=== PATIENT | female | born 1955 | race Caucasian/White ===

== ENCOUNTER 2021-10-15 16:45 | Inpatient (IN) | payer MEDICARE, SELFPAY ==
[2021-10-15] VITALS (30 sets, daily range): BP systolic 84–185; BP diastolic 51–116; PULSE 86–150; RESP 12–32; TEMP 36.3–37.6; O2SAT 78–96; BMI 29.2; BMI 34.3
--- NOTE | 2021-10-15 17:04 | DI.RAD.S_ITS ---
PROCEDURE: XR CHEST 1V INDICATIONS: chest pain TECHNIQUE: One view of the chest was acquired. COMPARISON: None. FINDINGS: Surgical changes and devices: None. Lungs and pleura: No pneumothorax. Bilateral pleural effusions larger on the right. Patchy bibasilar airspace opacities likely representing atelectasis although concurrent airspace disease not excluded. Mild diffuse interstitial prominence. Mediastinum: Mediastinal contours appear normal. Heart size is normal. Bones and chest wall: No suspicious bony lesions. Overlying soft tissues appear unremarkable. IMPRESSION: Small bilateral pleural effusions with bibasilar airspace opacities which may represent atelectasis and/or concurrent airspace disease. Diffuse interstitial prominence also noted. Early pulmonary edema may have a similar appearance. Recommend clinical correlation. Dictated by: James Foley M.D. on 10/15/2021 at 17:35 Approved by: James Foley M.D. on 10/15/2021 at 17:36
--- NOTE | 2021-10-15 17:08 | ED_ITS ---
HPI - Nausea/Vomiting/Diarrhea General Chief complaint: Nausea/Vomiting/Diarrhea Stated complaint: SWOLLEN BOTH LEGS/ABD./DIARRHEA Time Seen by Provider: 10/15/21 17:08 Source: patient Mode of arrival: Ambulatory Limitations: no limitations History of Present Illness HPI Narrative: This is a 66-year-old female who comes with complaint of intermittent but persistent diarrhea for a month, increasing swelling in her bilateral lower extremities did extending into her abdomen, increasing shortness of breath. Patient denies any syncope but has been lightheaded. She denies nausea or vomiting. She denies chest pain or pressure. She has had increasingly worsening exertional dyspnea. She states she believe she has COPD she has been on a steroid inhaler and rescue inhaler in the past patient does smoke she smok ed for approximately 50 years currently she has 10 cigarettes or less a day. She has not seen a primary care physician in 5-6 years. Her only medication is famotidine [id number]. Had a hysterectomy in 2012. Occasional alcohol, no illicit. Related Data Home Medications Medication Instructions Recorded Confirmed No Known Home Medications 10/15/21 10/15/21 Allergies Allergy/AdvReac Type Severity Reaction Status Date / Time Penicillins Allergy Verified 10/15/21 17:03 Review of Systems Review of Systems ROS Unobtainable: All systems reviewed & are unremarkable except as noted in HPI and below Patient History Social History Smoking Status: Current every day smoker Smoking Status: Current every day smoker tobacco type: cigarettes alcohol intake frequency: holidays/special occasions only Substance Use Type: does not use Exam Narrative Exam Narrative: GENERAL: Alert and oriented x three, fully female in moderate distress. HEENT: Head normocephalic, atraumatic, EOMI, pupils reactive, face symmetric, moist mucous membranes NECK: Supple, full range of motion CARDIOVASCULAR: Tachycardic but regular rate and rhythm without murmurs, rubs or gallops. Positive for JVD. Patient has significant pitting edema 3+ bilateral lower extremities extending up into her abdomen. RESPIRATORY: Breath sounds decreased bilaterally, no wheezes appreciated, rales or rhonchi. Tachypnea. Speaks in 4-5 words. ABDOMEN: Soft, nontender. Normoactive bowel sounds all 4 quadrants. No guarding or rebound, rigidity, no mass : No CVA tenderness EXTREMITIES: Normal range of motion. Patient's fingers and toes have decreased cap refill. Neurovascularly intact NEUROLOGICAL: Cranial nerves II through XII grossly intact. Moving all extremities SKIN: Warm, dry, no petechiae, no rashes or lesions. Initial Vital Signs Initial Vital Signs: Vital Signs Temperature 98.0 F 10/15/21 16:52 Pulse Rate 150 H 10/15/21 16:52 Respiratory Rate 18 10/15/21 16:52 Blood Pressure 144/104 H 10/15/21 16:52 Pulse Oximetry 80 L 10/15/21 16:52 Course Orders Ordered: ED Orders 10/15/21 17:04 XR chest 1V Stat EKG-12 Lead Stat 10/15/21 17:10 COVID19 -Nasal swab/Pre-Proc Stat Complete Blood Count AUTO DIFF Stat Comprehensive Metabolic Panel Stat Lactate (Lactic Acid) Stat Lipase Stat Magnesium Stat NT-proBNP (BNP-Adult 18+) Stat Partial Thromboplastin Time Stat Prothrombin Time INR Stat Troponin & CK Cardiac Panel Stat 10/15/21 17:18 Consult to Respiratory Therapy Evaluate & Treat 10/15/21 17:38 Arterial Blood Gas Stat 10/15/21 17:43 Blood Culture Stat 10/15/21 18:01 Partial Thromboplastin Time Stat 10/15/21 18:10 CT angio chest PE protocol Stat 10/15/21 18:15 Partial Thromboplastin Time DAILY 10/16/21 00:15 PTT [Partial Thromboplastin Time] Q6H 10/16/21 05:00 Hemoglobin and Hematocrit DAILY 10/16/21 06:15 PTT [Partial Thromboplastin Time] Q6H 10/16/21 12:15 PTT [Partial Thromboplastin Time] Q6H 10/16/21 18:15 PTT [Partial Thromboplastin Time] Q6H Partial Thromboplastin Time DAILY 10/17/21 18:15 Partial Thromboplastin Time DAILY 10/18/21 18:15 Partial Thromboplastin Time DAILY 10/19/21 18:15 Partial Thromboplastin Time DAILY 10/20/21 18:15 Partial Thromboplastin Time DAILY 10/21/21 18:15 Partial Thromboplastin Time DAILY Heparin Sodium/Dextrose (Heparin Drip) 25,000 unit in 500 mls @ 20 mls/hr IV CONT TRUONG; Protocol Last Admin: 10/15/21 18:42 Dose: 1,000 units/hr, 20 mls/hr Documented by: PHILIP Esmolol HCl (Brevibloc) 2.5 gm in 250 mls @ 22.453 mls/hr IV TITRATE TRUONG; Protocol Last Titration: 10/15/21 18:56 Dose: 24.5 mcg/kg/min, 11 mls/hr Documented by: Admin: 10/15/21 18:43 Dose: 50 mcg/kg/min, 22.453 mls/hr Documented by: PHILIP Discontinued Medications Aspirin (Aspirin 81 Mg Chew Tab) 324 mg PO NOW ONE Stop: 10/15/21 17:55 Last Admin: 10/15/21 18:05 Dose: 324 mg Documented by: PHILIP Diltiazem HCl (Diltiazem 5 Mg/Ml Sdv) 10 mg IV NOW ONE Stop: 10/15/21 17:21 Last Admin: 10/15/21 17:25 Dose: 10 mg Documented by: PHILIP Furosemide (Furosemide 40 Mg/4 Ml Vial) 40 mg IV NOW ONE Stop: 10/15/21 17:55 Last Admin: 10/15/21 18:06 Dose: 40 mg Documented by: PHILIP Heparin Sodium (Porcine) (Heparin 5,000 Unit/Ml Vial) 4,000 unit IV NOW ONE Stop: 10/15/21 18:02 Last Admin: 10/15/21 18:42 Dose: 4,000 unit Documented by: PHILIP Diltiazem HCl 125 mg/ Dextrose 125 mls @ 5 mls/hr IV TITRATE TRUONG; Protocol Last Admin: 10/15/21 19:01 Dose: Not Given Documented by: PHILIP Consultations Consultation #1: Yasmine, cardiology. Recommends heparin at this time he recommends esmolol for rate control. Aspirin, serial troponins, echo and diuresis. Does not need t ransfer acutely. Consultation #2: JORGE A Izaguirre, accepts for admission. Plan for ICU. Vital Signs Vital signs: Vital Signs - 8 hr 10/15/21 16:52 10/15/21 17:04 10/15/21 17:07 Temperature 98.0 F Pulse Rate 150 H 145 H 146 H Respiratory Rate 18 28 H Blood Pressure 144/104 H 185/114 H Pulse Oximetry 80 L 87 L 81 L 10/15/21 17:12 02/27/22 17:14 10/15/21 17:25 Temperature Pulse Rate 146 H 146 H Respiratory Rate 32 H Blood Pressure 163/116 H 163/116 H Pulse Oximetry 90 L 96 10/15/21 17:28 10/15/21 17:30 10/15/21 17:31 Temperature Pulse Rate 133 H 134 H Respiratory Rate 20 23 Blood Pressure 123/75 Pulse Oximetry 96 92 90 L 10/15/21 17:36 10/15/21 17:37 10/15/21 18:00 Temperature Pulse Rate 132 H 132 H 134 H Respiratory Rate 24 21 22 Blood Pressure 130/73 130/73 126/80 Pulse Oximetry 93 93 95 10/15/21 18:41 10/15/21 18:43 10/15/21 18:51 Temperature Pulse Rate 144 H 139 H 95 H Respiratory Rate 22 23 Blood Pressure 126/93 H 105/74 Pulse Oximetry 91 93 10/15/21 18:57 Temperature Pulse Rate 86 Respiratory Rate 22 Blood Pressure 101/72 Pulse Oximetry 92 MDM - Nausea/Vomiting/Diarrhea Lab Data Result diagrams: 10/15/21 17:10 10/15/21 17:10 Labs: Lab Results 10/15/21 10/15/21 10/15/21 Range/Units 17:10 17:10 17:10 WBC 7.2 (4.5-11.0) X10^3/uL RBC 6.93 H (4.0-5.2) X10^6/uL Hgb 19.0 H (12.0-16.0) g/dL Hct 59.7 H (36-46) % MCV 86.2 (80-100) fL MCH 27.5 (26-34) PG MCHC 31.9 (30-36) % RDW 17.5 H (11.6-14.8) % Plt Count 148 L (150-400) X10^3/uL Neut % (Auto) 78.9 H (50-75) % Lymph % (Auto) 7.5 L (25-40) % [place] % (Auto) 12.6 (3-14) % Eos % (Auto) 0.7 L (2-4) % Baso % (Auto) 0.3 (0-2) % Neut # (Auto) 5700 (7188-0161) /uL Lymph # (Auto) 500 L (4734-9766) /uL [place] # (Auto) 900 (0-900) /uL Eos # (Auto) 0 (0-450) /uL Baso # (Auto) 0 (0-100) /uL PT (10.1-12.7) SECONDS INR (0.9-1.3) APTT (26.4-36.2) SECONDS ABG pH (7.35-7.45) ABG pCO2 (35-45) mmHg ABG pO2 (80-100) mmHg ABG HCO3 (22-26) mmol/L ABG Total CO2 (21-31) mmol/L ABG O2 Saturation (95-100) % ABG Base Excess (-2-2) mmol/L FiO2 Sodium 128 L (137-145) mmol/L Potassium 4.9 (3.4-5.1) mmol/L Chloride 92 L (98-107) mmol/L Carbon Dioxide 31 (22-32) mmol/L BUN 23 H (7-17) mg/dL Creatinine 0.81 (0.52-1.04) mg/dL Estimated GFR > 60.0 (>60) mL/min BUN/Creatinine Ratio 28.4 H (6-22) Glucose 129 H (80-110) mg/dL Lactate (0.7-2.1) mmol/L Calcium 9.1 (8.4-10.2) mg/dL Magnesium 1.8 (1.6-2.3) mg/dL Total Bilirubin 2.8 H (0.2-1.3) mg/dL AST 94 H (14-36) IU/L ALT 70 H (<35) IU/L Alkaline Phosphatase 95 (38-126) U/L Total Creatine Kinase 114 (30-135) U/L CK-MB (CK-2) 8.24 H (<2.37) ng/mL CK-MB (CK-2) Rel Index 7.2 H* (1.5-5.0) % Troponin I 0.210 H* (0.01-0.034) ng/mL NT-Pro-B Natriuret Pep (<125) pg/mL Total Protein 6.5 (6.3-8.2) g/dL Albumin 3.6 (3.5-5.0) g/dL Globulin 2.9 (1.7-4.1) g/dL Albumin/Globulin Ratio 1.2 (1.0-2.8) Lipase 140 (23-300) U/L SARS-CoV-2 (PCR) Negative (Negative) 10/15/21 10/15/21 10/15/21 Range/Units 17:10 17:10 17:10 WBC (4.5-11.0) X10^3/uL RBC (4.0-5.2) X10^6/uL Hgb (12.0-16.0) g/dL Hct (36-46) % MCV (80-100) fL MCH (26-34) PG MCHC (30-36) % RDW (11.6-14.8) % Plt Count (150-400) X10^3/uL Neut % (Auto) (50-75) % Lymph % (Auto) (25-40) % [place] % (Auto) (3-14) % Eos % (Auto) (2-4) % Baso % (Auto) (0-2) % Neut # (Auto) (7402-0526) /uL Lymph # (Auto) (3253-6866) /uL [place] # (Auto) (0-900) /uL Eos # (Auto) (0-450) /uL Baso # (Auto) (0-100) /uL PT 15.5 H (10.1-12.7) SECONDS INR 1.4 H (0.9-1.3) APTT 30 (26.4-36.2) SECONDS ABG pH (7.35-7.45) ABG pCO2 (35-45) mmHg ABG pO2 (80-100) mmHg ABG HCO3 (22-26) mmol/L ABG Total CO2 (21-31) mmol/L ABG O2 Saturation (95-100) % ABG Base Excess (-2-2) mmol/L FiO2 Sodium (137-145) mmol/L Potassium (3.4-5.1) mmol/L Chloride (98-107) mmol/L Carbon Dioxide (22-32) mmol/L BUN (7-17) mg/dL Creatinine (0.52-1.04) mg/dL Estimated GFR (>60) mL/min BUN/Creatinine Ratio (6-22) Glucose (80-110) mg/dL Lactate 3.4 H (0.7-2.1) mmol/L Calcium (8.4-10.2) mg/dL Magnesium (1.6-2.3) mg/dL Total Bilirubin (0.2-1.3) mg/dL AST (14-36) IU/L ALT (<35) IU/L Alkaline Phosphatase (38-126) U/L Total Creatine Kinase (30-135) U/L CK-MB (CK-2) (<2.37) ng/mL CK-MB (CK-2) Rel Index (1.5-5.0) % Troponin I (0.01-0.034) ng/mL NT-Pro-B Natriuret Pep 8210 H (<125) pg/mL Total Protein (6.3-8.2) g/dL Albumin (3.5-5.0) g/dL Globulin (1.7-4.1) g/dL Albumin/Globulin Ratio (1.0-2.8) Lipase (23-300) U/L SARS-CoV-2 (PCR) (Negative) 10/15/21 Range/Units 17:38 WBC (4.5-11.0) X10^3/uL RBC (4.0-5.2) X10^6/uL Hgb (12.0-16.0) g/dL Hct (36-46) % MCV (80-100) fL MCH (26-34) PG MCHC (30-36) % RDW (11.6-14.8) % Plt Count (150-400) X10^3/uL Neut % (Auto) (50-75) % Lymph % (Auto) (25-40) % [place] % (Auto) (3-14) % Eos % (Auto) (2-4) % Baso % (Auto) (0-2) % Neut # (Auto) (1550-1859) /uL Lymph # (Auto) (8332-1932) /uL [place] # (Auto) (0-900) /uL Eos # (Auto) (0-450) /uL Baso # (Auto) (0-100) /uL PT (10.1-12.7) SECONDS INR (0.9-1.3) APTT (26.4-36.2) SECONDS ABG pH 7.36 (7.35-7.45) ABG pCO2 61.4 H* (35-45) mmHg ABG pO2 66 L (80-100) mmHg ABG HCO3 35 H (22-26) mmol/L ABG Total CO2 36 H (21-31) mmol/L ABG O2 Saturation 91 L (95-100) % ABG Base Excess 9.0 H (-2-2) mmol/L FiO2 21 Sodium (137-145) mmol/L Potassium (3.4-5.1) mmol/L Chloride (98-107) mmol/L Carbon Dioxide (22-32) mmol/L BUN (7-17) mg/dL Creatinine (0.52-1.04) mg/dL Estimated GFR (>60) mL/min BUN/Creatinine Ratio (6-22) Glucose (80-110) mg/dL Lactate (0.7-2.1) mmol/L Calcium (8.4-10.2) mg/dL Magnesium (1.6-2.3) mg/dL Total Bilirubin (0.2-1.3) mg/dL AST (14-36) IU/L ALT (<35) IU/L Alkaline Phosphatase (38-126) U/L Total Creatine Kinase (30-135) U/L CK-MB (CK-2) (<2.37) ng/mL CK-MB (CK-2) Rel Index (1.5-5.0) % Troponin I (0.01-0.034) ng/mL NT-Pro-B Natriuret Pep (<125) pg/mL Total Protein (6.3-8.2) g/dL Albumin (3.5-5.0) g/dL Globulin (1.7-4.1) g/dL Albumin/Globulin Ratio (1.0-2.8) Lipase (23-300) U/L SARS-CoV-2 (PCR) (Negative) Imaging Data Chest x-ray: Radiologist's Impression: [address] [id number] ReportSigned Patient: Elayne AbbottMR#: [id number]: 3Acct:[id number]/Sex: 66 / FDate of Service: 10/15/21Loc: EDAccession Number: [id number]? ? Procedure: XR chest 1V Ordering Provider: Edelmira Carbone D.O. PROCEDURE:? XR CHEST 1V ? INDICATIONS:? chest pain ? TECHNIQUE:? One view of the chest was acquired.? ? COMPARISON:? None. ? FINDINGS:? ? Surgical changes and devices:? None.? ? Lungs and pleura:? No pneumothorax.? Bilateral pleural effusions larger on the right.? Patchy bibasilar airspace opacities likely representing atelectasis although concurrent airspace disease not excluded.? Mild diffuse interstitial prominence. ? Mediastinum:? Mediastinal contours appear normal.? Heart size is normal.? ? Bones and chest wall:? No suspicious bony lesions.? Overlying soft tissues appear unremarkable.? ? IMPRESSION:? Small bilateral pleural effusions with bibasilar airspace opacities which may represent atelectasis and/or concurrent airspace disease.? Diffuse interstitial prominence also noted.? Early pulmonary edema may have a similar appearance.? Recommend clinical correlation. ? ? Dictated by: James Foley M.D. on 10/15/2021 at 17:35? ?? Approved by: James Foley M.D. on 10/15/2021 at 17:36?? CT scan - chest: Radiologist's Impression: Launch?[place] [address] CT Scan Report Signed Patient: Elayne Abbott MR#: [id number] : 1955 Acct:[id number] Age/Sex: 66 / F Date of Service: 10/15/21 Loc: ED Accession Number: [id number] ?? Procedure: CT angio chest PE protocol Ordering Provider: Edelmira Carbone D.O. PROCEDURE:? CT ANGIO CHEST PE PROTOCOL ? INDICATIONS:? afib rvr, CXR changes. ? TECHNIQUE:? After the administration of intravenous contrast, 2 mm thick sections acquired from the pulmonary apices to the posterior costophrenic angles.? 3-dimensional maximum in tensity projection (MIP) coronal and sagittal reformats were then acquired through the thorax.? For radiation dose reduction, the following was used:? automated exposure control, adjustment of mA and/or kV according to patient size.? ? COMPARISON:? None. ? FINDINGS:? Image quality:? Excellent.? ? Pulmonary arteries:? Enlargement of the pulmonary trunk, compatible with hypertension.? No intraluminal filling defects to suggest central pulmonary embolism.? ? Lungs and pleura:? Small bilateral pleural effusions with adjacent atelectasis.? Two noncalcified pulmonary nodules are seen in the right upper lobe, measuring up to 2.8 mm (i.e. 7-98).? ? Central and peripheral airways are patent.? ? Mediastinum:? Cardiomegaly without pericardial effusion.? Coronary artery calcification.? ? No mediastinal or hilar adenopathy.? ? Thoracic aorta is normal in caliber and enhancement.? ? Wall thickening of the esophagus with moderate to large hiatal hernia.? ? Bones and chest wall:? No suspicious bony lesions.? Multifocal degenerative change.? Ribs and thoracic spine appear intact throughout.? ? Thyroid gland demonstrates homogeneous attenuation.? ? No axillary or supraclavicular adenopathy.? Anasarca.? Left diaphragmatic defect, measuring 6 cm, which contains a portion of the colon. ? Abdomen:? Small volume ascites. ? IMPRESSION:? 1. Small bilateral pleural effusions with adjacent atelectasis. 2. Cardiomegaly. 3. Enlargement of the pulmonary vasculature, compatible with hypertension. ? ? Dictated by: Joey Arreguin M.D. on 10/15/2021 at 18:43 ? ? Approved by: Joey Arreguin M.D. on 10/15/2021 at 18:50? ECG Data Attestation: I personally reviewed and interpreted this ECG as follows: Prior ECG tracings: not available for review Interpretation: Supraventricular tachycardia rate of 147 QRS 84 and QTC 435. Do not appreciate ST elevation. No priors available for comparison. MDM Narrative Medical decision making narrative: This is a 66-year-old female comes in tachycardic with AFib RVR, appears to be in CHF clinically and labs support this with no acute ST elevation but has either NSTEMI or demand ischemia. Patient's heart rate did improve with a bolus of diltiazem after consultation with Cardiology they recommend beta-blockers preferentially, metoprolol and labetalol are not available there is a national back order so as well all was selected. Patient has been well rate controlled with very minimal dose. Aspirin, heparin and Lasix were initiated. Patient had changes on her chest x-ray concerning with her COPD/chronic tobacco use in CT angio was obtained which shows possible pulmonary hypertension, bilateral pleural effusions and patchy bibasilar airspace opacities but no PE. Patient's oxygenation improved significantly with 3 L nasal cannula and ABG shows what appears to be chronic CO to retention consistent with chronic tobacco use. Patient feels much better after our interventions. Discussed with hospitalist who kindly accepts and patient admitted to the ICU. Critical Care Time Critical Care Time Critical Care Time: Yes Total Critical Care Time: 45 Attestation: The high probability of a clinically significant, sudden or life threatening deterioration of the [cardiac, pulm] system(s) required my full and direct attention, intervention and personal management. The aggregate critical care time was [] minutes. This time is in addition to time spent performing reported procedures but includes the following: [x] Data Review and interpretation [x] Patient assessment and monitoring of vital signs [x] Documentation [x] Medication orders and management Discharge Plan Departure Patient Disposition: Admitted As Inpatient Clinical Impression: Acute exacerbation of CHF (congestive heart failure), Atrial fibrillation with rapid ventricular response, Non-ST elevation (NSTEMI) myocardial infarction
[2021-10-15] MEDS: dilTIAZem 5 MG/ML SDV 10 MG IV (17:25)
[2021-10-15 17:29] LABS: Add Manual Diff / Slide Review NO; Basophils Absolute Auto 0 /uL (0-100); Basophils Percent Auto 0.3 % (0-2); Eosinophils Absolute Auto 0 /uL (0-450); Eosinophils Percent Auto 0.7 % (2-4); Hematocrit 59.7 % (36-46); Lymphocytes Absolute Auto 500 /uL (1100-4500); Lymphocytes Percent Auto 7.5 % (25-40); Mean Corpuscular HGB Conc 31.9 % (30-36); Mean Corpuscular Hemoglobin 27.5 PG (26-34); Mean Corpuscular Volume 86.2 fL (80-100); Monocytes Absolute Auto 900 /uL (0-900); Monocytes Percent Auto 12.6 % (3-14); Neutrophils Absolute Auto 5700 /uL (1500-7000); Neutrophils Percent Auto 78.9 % (50-75); Platelet Count 148 X10^3/uL (150-400); Red Blood Cell Count 6.93 X10^6/uL (4.0-5.2); Red Cell Distribution Width 17.5 % (11.6-14.8); White Blood Cell Count 7.2 X10^3/uL (4.5-11.0)
--- NOTE | 2021-10-15 17:30 | PC.NURSE ---
RT at bedside. Patient placed back on room air for ABG.
[2021-10-15 17:32] LABS: COVID19 -Nasal RAPID Negative (Negative)
[2021-10-15 17:34] LABS: INR 1.4 (0.9-1.3); Prothrombin Time 15.5 SECONDS (10.1-12.7)
[2021-10-15 17:37] LABS: PTT Partial Thromboplastin Tim 30 SECONDS (26.4-36.2)
[2021-10-15 17:38] LABS: Alanine Aminotransferase 70 IU/L (<35); Albumin 3.6 g/dL (3.5-5.0); Albumin Globulin Ratio 1.2 (1.0-2.8); Alkaline Phosphatase 95 U/L (38-126); Aspartate Aminotransferase 94 IU/L (14-36); BUN Creatinine Ratio 28.4 (6-22); Bilirubin Total 2.8 mg/dL (0.2-1.3); Blood Urea Nitrogen 23 mg/dL (7-17); Calcium 9.1 mg/dL (8.4-10.2); Carbon Dioxide 31 mmol/L (22-32); Chloride 92 mmol/L (98-107); Creatine Kinase 114 U/L (30-135); Estimated Glomerular Filt Rate > 60.0 mL/min (>60); Globulin 2.9 g/dL (1.7-4.1); Glucose 129 mg/dL (80-110); Lipase 140 U/L (23-300); Magnesium 1.8 mg/dL (1.6-2.3); Potassium 4.9 mmol/L (3.4-5.1); Sodium 128 mmol/L (137-145); Total Protein 6.5 g/dL (6.3-8.2)
[2021-10-15 17:39] LABS: Lactate (Lactic Acid) 3.4 mmol/L (0.7-2.1)
[2021-10-15 17:47] LABS: pH ABG 7.36 (7.35-7.45)
[2021-10-15 17:47] LABS: NT-proBNP (BNP-Adult 18+) 8210 pg/mL (<125)
[2021-10-15 17:48] LABS: Fractionated Inspired Oxygen 21; HCO3 ABG 35 mmol/L (22-26); Oxygen Saturation ABG 91 % (95-100); PO2 ABG 66 mmHg (80-100); TCO2 ABG 36 mmol/L (21-31)
[2021-10-15 17:53] LABS: Creatine Kinase MB 8.24 ng/mL (<2.37); HEMOLYSIS 38 (0-50)
[2021-10-15 17:58] LABS: CKMB % Relative Index 7.2 % (1.5-5.0)
[2021-10-15] MEDS: ASPIRIN 81 MG CHEW TAB 324 MG PO (18:05)
[2021-10-15] MEDS: FUROSEMIDE 40 MG/4 ML VIAL IV (18:06)
--- NOTE | 2021-10-15 18:10 | DI.CT.S_ITS ---
PROCEDURE: CT ANGIO CHEST PE PROTOCOL INDICATIONS: afib rvr, CXR changes. TECHNIQUE: After the administration of intravenous contrast, 2 mm thick sections acquired from the pulmonary apices to the posterior costophrenic angles. 3-dimensional maximum intensity projection (MIP) coronal and sagittal reformats were then acquired through the thorax. For radiation dose reduction, the following was used: automated exposure control, adjustment of mA and/or kV according to patient size. COMPARISON: None. FINDINGS: Image quality: Excellent. Pulmonary arteries: Enlargement of the pulmonary trunk, compatible with hypertension. No intraluminal filling defects to suggest central pulmonary embolism. Lungs and pleura: Small bilateral pleural effusions with adjacent atelectasis. Two noncalcified pulmonary nodules are seen in the right upper lobe, measuring up to 2.8 mm (i.e. 7-98). Central and peripheral airways are patent. Mediastinum: Cardiomegaly without pericardial effusion. Coronary artery calcification. No mediastinal or hilar adenopathy. Thoracic aorta is normal in caliber and enhancement. Wall thickening of the esophagus with moderate to large hiatal hernia. Bones and chest wall: No suspicious bony lesions. Multifocal degenerative change. Ribs and thoracic spine appear intact throughout. Thyroid gland demonstrates homogeneous attenuation. No axillary or supraclavicular adenopathy. Anasarca. Left diaphragmatic defect, measuring 6 cm, which contains a portion of the colon. Abdomen: Small volume ascites. IMPRESSION: 1. Small bilateral pleural effusions with adjacent atelectasis. 2. Cardiomegaly. 3. Enlargement of the pulmonary vasculature, compatible with hypertension. Dictated by: Joey Arreguin M.D. on 10/15/2021 at 18:43 Approved by: Joey Arreguin M.D. on 10/15/2021 at 18:50
[2021-10-15] MEDS: HEPARIN 5,000 UNIT/ML VIAL 4000 UNIT IV (18:42)
[2021-10-15] MEDS: HEPARIN DRIP 25,000 UNIT/500 ML IV.SOLN 20 UNIT IV (18:42)
[2021-10-15] MEDS: ESMOLOL 2.5 GM/250 ML IV.SOLN IV (18:43)
[2021-10-15 19:25] LABS: Reflexed Lactate in 2 Hours Y
[2021-10-15 20:41] LABS: Lactate 2HR (Lactic Acid Rflx) 1.6 mmol/L (0.7-2.1)
--- NOTE | 2021-10-15 21:33 | P.HP_ITS ---
History of Present Illness History of Present Illness Date Patient Seen: 10/15/21 Time Patient Seen: 20:30 Chief complaint: SWOLLEN IN BOTH LEGS/ABD./DIARRHEA Narrative: Elayne Abbott is a 66-year-old female who comes with a 2-week history of intermittent but persistent diarrhea, increasing swelling in her bilateral lower extremities did extending into her abdomen, increasing shortness of breath over the past week.? Patient denies any syncope but has been lightheaded.? She denies nausea or vomiting.? She denies chest pain or pressure.? She has had increas ingly worsening exertional dyspnea.? She states she believes she has COPD as she continues to smoke, having a 50 year pack history, now smoking 10 cigarettes/day. She has been on a steroid inhaler and rescue inhaler in the past. She has not seen a primary care physician in 5-6 years.? Her only medic ation is famotidine [id number].? Had a hysterectomy in 2012. Chest x-ray ordered in the emergency department indicated small bilateral effusions concerning for atelectasis and/or concurrent airspace disease. CTA indicated in addition to same findings as chest x-ray, enlargement of the pulmon arielle vasculature compatible with hypertension. Patient's troponin was elevated initially at 0.210 and was started on a heparin drip as well as esmolol for rate control. The patient was bolused with an initial dose of diltiazem 10 mg. She came up to the floor with the intention of being started on an esmolol drip at 25 mics, but when she converted they did not start the drip. She was at that point rate controlled and the tele mens locker room attendant recommended that she be initiated on a low dose of esmolol approximately 6 mics per minute. Currently she is afebrile, blood pressure 92/59, heart rate 117, respiratory rate 22, oxygen saturation of 95% on 3 liters/minute, she weighs 88 kg with a BMI of 34.3. She is heme concentrated with a hemoglobin of 19 and hematocrit of 59.7 platelet count 148, her ABG pCO2 was 61.4 which is likely where she lives at, sodium 128, chloride 92, BUN 23, glucose 129, hemoglobin A1c is 7.1, total bilirubin is 2.8, AST 394, ALT 70. As stated her initial troponin was 0.210 and it is now 0.361 hours later, proBNP is 8210, TSH and free T4 within normal limits, COVID 19 PCR is negative. Patient History Surgical History (Updated 10/16/21 @ 00:49 by JEAN Morales) Hx of hysterectomy Family & Social History Family History (Updated 10/16/21 @ 00:51 by JEAN Morales) Mother COPD (chronic obstructive pulmonary disease) Tobacco dependence due to cigarettes Father COPD (chronic obstructive pulmonary disease) Tobacco dependence due to cigarettes Grandfather Myocardial infarction Grandfather Heart disease Social History: household members spouse Prior Living Arrangements House Safety & Behavioral: Feels Safe in Current Yes Environment Been Physically Hurt or No Threatened By a Person Suicidal Ideation Description None Suicide Plan Description No Plan Tobacco & Substance use: Tobacco type cigarettes Smoking Status Current every day smoker alcohol intake current alcohol intake frequency holiday/special occasion Substance Use Type does not use Meds Home Medications and Allergies Home Medications Medication Instructions Recorded Confirmed Type famotidine 20 mg tablet (Pepcid) 20 mg PO DAILY PRN 10/15/21 10/15/21 History Allergies Allergy/AdvReac Type Severity Reaction Status Date / Time Penicillins Allergy Verified 10/15/21 17:03 Review of Systems Review of Systems ROS: Yes All systems reviewed with the patient and are negative except as otherwise documented Exam Vital Signs (past 8 hours): - 10/15/21 16:52 10/15/21 17:04 10/15/21 17:07 Temperature 98.0 F Pulse Rate 150 H 145 H 146 H Respiratory Rate 18 28 H Blood Pressure 144/104 H 185/114 H Pulse Oximetry 80 L 87 L 81 L 10/15/21 17:12 10/15/21 17:14 10/15/21 17:25 Temperature Pulse Rate 146 H 146 H Respiratory Rate 32 H Blood Pressure 163/116 H 163/116 H Pulse Oximetry 90 L 96 10/15/21 17:28 10/15/21 17:30 10/15/21 17:31 Temperature Pulse Rate 133 H 134 H Respiratory Rate 20 23 Blood Pressure 123/75 Pulse Oximetry 96 92 90 L 10/15/21 17:36 10/15/21 17:37 10/15/21 18:00 Temperature Pulse Rate 132 H 132 H 134 H Respiratory Rate 24 21 22 Blood Pressure 130/73 130/73 126/80 Pulse Oximetry 93 93 95 10/15/21 18:41 10/15/21 18:43 10/15/21 18:51 Temperature Pulse Rate 144 H 139 H 95 H Respiratory Rate 22 16 Blood Pressure 126/93 H 105/74 Pulse Oximetry 91 93 10/15/21 18:56 10/15/21 18:57 10/15/21 19:00 Temperature Pulse Rate 96 H 86 95 H Respiratory Rate 22 17 Blood Pressure 101/72 101/72 112/88 Pulse Oximetry 92 91 10/15/21 19:21 10/15/21 19:30 10/15/21 19:45 Temperature Pulse Rate 94 H 95 H 96 H Respiratory Rate 22 20 20 Blood Pressure 113/83 109/70 104/65 Pulse Oximetry 94 10/15/21 20:00 10/15/21 20:01 10/15/21 20:15 Temperature Pulse Rate 96 H 97 H 96 H Respiratory Rate 20 19 24 Blood Pressure 85/58 L 97/66 102/67 Pulse Oximetry 94 94 91 Oxygen Delivery Method Nasal Cannula Oxygen Flow Rate 3 Objective Labs Result Diagrams: 10/15/21 17:10 10/15/21 17:10 Labs: Laboratory Results - last 24 hr 10/15/21 10/15/21 10/15/21 17:10 17:10 17:10 WBC 7.2 RBC 6.93 H Hgb 19.0 H Hct 59.7 H MCV 86.2 MCH 27.5 MCHC 31.9 RDW 17.5 H Plt Count 148 L Neut % (Auto) 78.9 H Lymph % (Auto) 7.5 L [place] % (Auto) 12.6 Eos % (Auto) 0.7 L Baso % (Auto) 0.3 Neut # (Auto) 5700 Lymph # (Auto) 500 L [place] # (Auto) 900 Eos # (Auto) 0 Baso # (Auto) 0 PT INR APTT ABG pH ABG pCO2 ABG pO2 ABG HCO3 ABG Total CO2 ABG O2 Saturation ABG Base Excess FiO2 Sodium 128 L Potassium 4.9 Chloride 92 L Carbon Dioxide 31 BUN 23 H Creatinine 0.81 Estimated GFR > 60.0 BUN/Creatinine Ratio 28.4 H Glucose 129 H Lactate Calcium 9.1 Magnesium 1.8 Total Bilirubin 2.8 H AST 94 H ALT 70 H Alkaline Phosphatase 95 Total Creatine Kinase 114 CK-MB (CK-2) 8.24 H CK-MB (CK-2) Rel Index 7.2 H* Troponin I 0.210 H* NT-Pro-B Natriuret Pep Total Protein 6.5 Albumin 3.6 Globulin 2.9 Albumin/Globulin Ratio 1.2 Lipase 140 SARS-CoV-2 (PCR) Negative 10/15/21 10/15/21 10/15/21 17:10 17:10 17:10 WBC RBC Hgb Hct MCV MCH MCHC RDW Plt Count Neut % (Auto) Lymph % (Auto) [place] % (Auto) Eos % (Auto) Baso % (Auto) Neut # (Auto) Lymph # (Auto) [place] # (Auto) Eos # (Auto) Baso # (Auto) PT 15.5 H INR 1.4 H APTT 30 ABG pH ABG pCO2 ABG pO2 ABG HCO3 ABG Total CO2 ABG O2 Saturation ABG Base Excess FiO2 Sodium Potassium Chloride Carbon Dioxide BUN Creatinine Estimated GFR BUN/Creatinine Ratio Glucose Lactate 3.4 H Calcium Magnesium Total Bilirubin AST ALT Alkaline Phosphatase Total Creatine Kinase CK-MB (CK-2) CK-MB (CK-2) Rel Index Troponin I NT-Pro-B Natriuret Pep 8210 H Total Protein Albumin Globulin Albumin/Globulin Ratio Lipase SARS-CoV-2 (PCR) 10/15/21 10/15/21 17:38 19:56 WBC RBC Hgb Hct MCV MCH MCHC RDW Plt Count Neut % (Auto) Lymph % (Auto) [place] % (Auto) Eos % (Auto) Baso % (Auto) Neut # (Auto) Lymph # (Auto) [place] # (Auto) Eos # (Auto) Baso # (Auto) PT INR APTT ABG pH 7.36 ABG pCO2 61.4 H* ABG pO2 66 L ABG HCO3 35 H ABG Total CO2 36 H ABG O2 Saturation 91 L ABG Base Excess 9.0 H FiO2 21 Sodium Potassium Chloride Carbon Dioxide BUN Creatinine Estimated GFR BUN/Creatinine Ratio Glucose Lactate 1.6 Calcium Magnesium Total Bilirubin AST ALT Alkaline Phosphatase Total Creatine Kinase CK-MB (CK-2) CK-MB (CK-2) Rel Index Troponin I NT-Pro-B Natriuret Pep Total Protein Albumin Globulin Albumin/Globulin Ratio Lipase SARS-CoV-2 (PCR) Assessment & Plan Assessment & Plan narrative: Elayne Abbott is a 66 y.o. female with newly diagnosed DM type 2, heart falure, and atrial-fibrillation with RVR is admitted to the ICU for further evaluation of atrial fibrillation. 1. Atrial fibrillation w/RVR, acute and present on admission * She is initiated on a low dose esmolol drip * If blood pressure unable to tolerate esmolol drip, change to amiodarone bolus and drip recommended by tele-mens locker room attendant * TSH/Free T4 w/in normal limits. 2. New diagnosis of probable congestive heart failure exhibiting as volume overload, acute, present on admission * Echocardiogram in the morning to determine severity and type of CHF * IV Lasix q.12 hours w/1L/day goal * Strict I&Os q 8 hours * She was ordered for magnesium by the mens locker room attendant 3. NSTEMI vs demand ischemia, * She was initiated on heparin drip in the emergency department per Cardiology recommendation * Start low-dose aspirin in the morning * Troponins continue to trend up as of 10:28 p.m. Next troponin due at 0500. 4. New diagnosis of diabetes type 2 * She will need diabetic education * Carb controlled diet * Low dose insulin correctional scale 5. History of COPD. * Chronic Resp Acidosis on ABG noted. Elevated Hgb and CO2 * Continue NC if needed, O2 sat goal is 87-93% * PRN Nebs, albuterol and duoneb * Smoking cessation education. 14 mcg Nicotine patch to be offered. 6. Elevated LFTs, unknown if acute * have ordered an acute hepatitis panel * Possible abdominal ascites, may need abdominal ultrasound 7. Diarrhea, present for 2 weeks * She has been ordered for stool cultures and Clostridium difficile VTE Prophylaxis: Wells risk score 1.5 Patient is currently being anticoagulated on a heparin drip Patient is admitted to the inpatient intensive care unit due to the severity of disease, risks of further disease progression and this stay is expected to exceed 2 midnights. FEN: IV fluids: receiving drips, diet: carb controlled , labs: CBC, C/BMP, liver enzymes, Mag, PT/INR Consultants: Intercept-ICU care and involvement in the patient?s care is appreciated. Dispo: Unknown at this time Code status: Full code as discussed with the patient who identifies her , Vel her surrogate and POA. [X] I have utilized all available immediate resources to obtain, update, or review of the patient's current medications Time Spent With Patient Critical Care time: I spent a total of [] minutes of critical care time on this patient's care today; this time is exclusive of procedural time. Scores CHADS-VASc Congestive heart failure: yes Hypertension: no Age 75 years or older: no Diabetes mellitus: yes Stroke, TIA, or TE: no Vascular disease: no Age 65 to 74 years: yes Sex category (female): Female CHADS-VASc Score: 4 Wells' Criteria for PE Clinical signs and symptoms of DVT: No PE is #1 Dx or equally likely: No Heart rate > 100: Yes Immobilization at least 3 days or surg in previous 4 weeks: No History of PE or DVT: No Hemoptysis: No Malignancy w/Treatment within 6 months or palliative: No Wells' PE Score total: 1.5 Quality VTE Deep Vein Thrombosis/Pulmonary Embolism Present on Admission: No MIPS - Admit I confirm the patient?s Advance Care Plan is present, Code status is documented, Surrogate decision maker is in patient?s record [If Yes, STOP here]: Yes MIPS - DC The patient has current or prior documentation of left ventricular ejection fra ction (LVEF) less than 40%, or moderate or severely depressed left ventricular systolic function.: No
--- NOTE | 2021-10-15 21:38 | DI.ECHO.S_ITS ---
[facility]---------+ [facility] +---------+ : : [address] [place] : : : : [id number] : : : : Phone: [phone] Echocardiogram Report + + :Name: MATTEO YUSUF Study Date: 10/16/2021 Height: 63 in : :[facility] ReadingLocation: Weight: 193 lb: : Gender: Female BSA: 1.9 m2 : :: 1955 Age: 66 yrs BP: 88/52 mmHg: :Reason For Study: NSTEMI, AFIB : :Ordering Physician: HARI MULLER Performed By: Sharon Goel : :Referring: HARI MULLER : + + Interpretation Summary The patient was in atrial flutter during the exam. The heart rate ranged between 98-106 bpm during the study. The left ventricular cavity is small. The ejection fraction is estimated to be 30-35%. There is moderate to severe global hypokinesis of the left ventricle. The interventricular septum is flattened, consistent with a right ventricular pressure/volume condition. The right ventricle is moderate to severely dilated. Right ventricular systolic function is moderate to severely reduced. The interatrial septum bows toward left atrium consistent with elevated right atrial pressure. The right atrium is severely dilated. The tricuspid annulus is dilated. There is a Mal coaptation of tricuspid leaflets. There is moderate to severe tricuspid regurgitation. The right ventricular systolic pressure is estimated to be at least 35 mmHg based on an estimated right atrial pressure of 15 mm Hg. This appears to be underestimated. Suspect significant pulmonary hypertension. There is mild luminal irregularity and echogenicity in the abdominal aorta, suggestive of aortic atherosclerotic disease. Mild atherosclerotic plaque(s) in the aortic arch. Consider work-up to rule out PE as well. Procedure: A two-dimensional transthoracic echocardiogram with color flow and Doppler was performed. The study quality was technically adequate. There is no prior echocardiogram noted for this patient. The heart rate ranged between 98-106 bpm during the study. The patient was in atrial flutter during the exam. Left Ventricle: The left ventricular cavity is small. There is normal left ventricular wall thickness. There is no echo evidence for significant left ventricular outflow tract obstruction. There is no thrombus. The ejection fraction is estimated to be 30-35%. There is moderate to severe global hypokinesis of the left ventricle. The interventricular septum is flattened, consistent with a right ventricular pressure/volume condition. E/E' med: 13.1. Right Ventricle: The right ventricle is moderate to severely dilated. Right ventricular systolic function is moderate to severely reduced. Atria: The left atrial size is normal. The right atrium is severely dilated. The interatrial septum bows toward left atrium consistent with elevated right atrial pressure. Mitral Valve: There is mild mitral annular calcification. The mitral valve leaflets appear mildly thickened, but open well. There is trace mitral regurgitation. Aortic Valve: The aortic valve is trileaflet. The aortic valve opens well. There is no aortic valve stenosis. No aortic regurgitation is present. Tricuspid Valve: The tricuspid annulus is dilated. There is a Mal coaptation of tricuspid leaflets. There is moderate to severe tricuspid regurgitation. The right ventricular systolic pressure is estimated to be at least 35 mmHg based on an estimated right atrial pressure of 15 mm Hg. Pulmonic Valve: The pulmonic valve is not well seen, but is grossly normal. There is trace pulmonic regurgitation. Great Vessels: The aortic root is normal size. The ascending aorta could not be visualized. There is mild luminal irregularity and echogenicity in the abdominal aorta, suggestive of aortic atherosclerotic disease. Mild atherosclerotic plaque(s) in the aortic arch. The IVC is dilated (diameter is greater than 2.1 cm) and it collapses less than 50% with a sniff. This suggests a high right atrial pressure of 15 mm Hg. Pericardium/ Pleura There is no pericardial effusion. There is no pleural effusion. MMode/2D Measurements & Calculations LVIDd: 3.7 cm LVOT diam: 2.1 cm LVIDs: 2.8 cm Ao root diam: 3.1 cm FS: 24.6 % Ao Arch Diam (Prox Trans): 2.0 cm IVSd: 1.2 cm LVPWd: 0.86 cm LV sandoval. diameter/BSA (cm/m^2): 1.9 LV sys. diameter/BSA (cm/m^2): 1.5 LA A2 area: 16.0 cm2 RA long axis: 6.8 cm LA A4 area: 16.9 cm2 RA area: 35.1 cm2 LA length (vol): 5.5 cm RA vol: 154.6 ml LA vol: 41.6 ml RA : 81.2 ml/m2 LA vol index: 21.8 ml/m2 IVC diam: 2.4 cm RVD1 (basal): 5.3 cm RVD2 (mid): 4.0 cm TAPSE: 1.3 cm Doppler Measurements & Calculations Ao V2 max: 125.7 cm/sec LVOT Max Ji: 80.6 cm/sec Ao V2 mean: 87.6 cm/sec LV V1 max P.6 mmHg Ao max P.3 mmHg LV V1 VTI: 13.2 cm Ao mean P.5 mmHg JESSICA(I,D): 2.6 cm2 Ao V2 VTI: 18.1 cm JESSICA(V,D): 2.3 cm2 sev ratio: 0.73 JESSICA indexed to BSA (cm^2/m^2): 1.4 MV E max ji: 99.6 cm/sec TR max ji: 219.3 cm/sec MV A max ji: 2.5 cm/sec TR max P.3 mmHg MV E/A: 40.3 PA V2 max: 83.6 cm/sec Med Peak E' Ji: 7.6 cm/sec PA V2 mean: 56.9 cm/sec E/E' med: 13.1 PA mean P.5 mmHg Lat Peak E' Ji: 12.6 cm/sec E/E' lat: 7.9 E/e' average: 10.5 MV dec time: 0.17 sec SV(LVOT): 47.4 ml Reading Physician:09:50 AM
--- NOTE | 2021-10-15 21:41 | PM.CN.EICU ---
History of Present Illness Consult details Chief complaint: SWOLLEN IN BOTH LEGS/ABD./DIARRHEA :: This patient was seen in the Intensive Care Unit via real time interactive two-way audiovisual telecommunication. Narrative: Patient seen at bedside with RN. She is a 66F with a history of COPD and tobacco use, otherwise no known significant medical history (has not seen a physician for many years) who presented to the ER today with several weeks of nonbloody diarrhea and swelling. Associated with shortness of breath. In the ER she was noted to be in AFib with RVR and was given a bolus of Dilitiazem then started on an Esmolol drip (due to drug shortage). Patient with an elevated troponin, c/f NSTEMI - given ASA. Cardiology was consulted who recommended ASA, delta troponins, Esmolol drip and HEparin drip. Also given Lasix with good UOP since. Patient was placed on NC at 3L and an ABG was drawn which noted CO2 retention. Her Esmolol drip later stopped due to HR in the 70s with mild hypotension. Transferred to the ICU for further monitoring. [facility] Social History household members: spouse Smoking Status: Current every day smoker alcohol intake: current Current Medications Current Medications Medications: Home Medications famotidine 20 mg tablet (Pepcid) 20 mg PO DAILY PRN 10/15/21 [History Confirmed 10/15/21] Visit Medications (administered) Generic Name Dose Route Start Last Admin Trade Name Freq PRN Reason Stop Dose Admin Heparin Sodium/Dextrose 25,000 unit in 500 mls @ 20 mls/hr 10/15/21 18:15 10/15/21 20:15 Heparin Drip IV 1,000 units/hr CONT TRUONG 20 mls/hr Titration Protocol 1,000 UNITS/HR Esmolol HCl 2.5 gm in 250 mls @ 22.453 mls/hr 10/15/21 18:15 10/15/21 21:00 Brevibloc IV 13.36 mcg/kg/min TITRATE TRUONG 6 mls/hr Titration Protocol 50 MCG/KG/MIN Exam Vital Signs (past 8 hours): - 10/15/21 16:52 10/15/21 17:04 10/15/21 17:07 Temperature 98.0 F Pulse Rate 150 H 145 H 146 H Respiratory Rate 18 28 H Blood Pressure 144/104 H 185/114 H Pulse Oximetry 80 L 87 L 81 L 10/15/21 17:12 10/15/21 17:14 10/15/21 17:25 Temperature Pulse Rate 146 H 146 H Respiratory Rate 32 H Blood Pressure 163/116 H 163/116 H Pulse Oximetry 90 L 96 10/15/21 17:28 10/15/21 17:30 10/15/21 17:31 Temperature Pulse Rate 133 H 134 H Respiratory Rate 20 23 Blood Pressure 123/75 Pulse Oximetry 96 92 90 L 10/15/21 17:36 10/15/21 17:37 10/15/21 18:00 Temperature Pulse Rate 132 H 132 H 134 H Respiratory Rate 24 21 22 Blood Pressure 130/73 130/73 126/80 Pulse Oximetry 93 93 95 10/15/21 18:41 10/15/21 18:43 10/15/21 18:51 Temperature Pulse Rate 144 H 139 H 95 H Respiratory Rate 22 16 Blood Pressure 126/93 H 105/74 Pulse Oximetry 91 93 10/15/21 18:56 10/15/21 18:57 10/15/21 19:00 Temperature Pulse Rate 96 H 86 95 H Respiratory Rate 22 17 Blood Pressure 101/72 101/72 112/88 Pulse Oximetry 92 91 10/15/21 19:21 10/15/21 19:30 10/15/21 19:45 Temperature Pulse Rate 94 H 95 H 96 H Respiratory Rate 22 20 20 Blood Pressure 113/83 109/70 104/65 Pulse Oximetry 94 10/15/21 20:00 10/15/21 20:01 10/15/21 20:15 Temperature Pulse Rate 96 H 97 H 96 H Respiratory Rate 20 19 24 Blood Pressure 85/58 L 97/66 102/67 Pulse Oximetry 94 94 91 Oxygen Delivery Method Nasal Cannula Oxygen Flow Rate 3 Const Other: Awake, alert and appears comfortable Neck Other: per RN, no thyromegaly on palpation Chest Other: Tachycardic, Resp Other: Mild tachypnea. On NC @ 3L. No wheezing per RN Cardio Other: Tachycardic, irregular rhythm. Pitting edema in bilateral LE, up to abdomen GI Other: Soft, nontender Neuro Other: Alert, oriented. Moves all extremities. Follows commands Objective Labs Result Diagrams: 10/15/21 17:10 10/15/21 17:10 Labs: Laboratory Results - last 24 hr 10/15/21 10/15/21 10/15/21 17:10 17:10 17:10 WBC 7.2 RBC 6.93 H Hgb 19.0 H Hct 59.7 H MCV 86.2 MCH 27.5 MCHC 31.9 RDW 17.5 H Plt Count 148 L Neut % (Auto) 78.9 H Lymph % (Auto) 7.5 L [place] % (Auto) 12.6 Eos % (Auto) 0.7 L Baso % (Auto) 0.3 Neut # (Auto) 5700 Lymph # (Auto) 500 L [place] # (Auto) 900 Eos # (Auto) 0 Baso # (Auto) 0 PT INR APTT ABG pH ABG pCO2 ABG pO2 ABG HCO3 ABG Total CO2 ABG O2 Saturation ABG Base Excess FiO2 Sodium 128 L Potassium 4.9 Chloride 92 L Carbon Dioxide 31 BUN 23 H Creatinine 0.81 Estimated GFR > 60.0 BUN/Creatinine Ratio 28.4 H Glucose 129 H Lactate Calcium 9.1 Magnesium 1.8 Total Bilirubin 2.8 H AST 94 H ALT 70 H Alkaline Phosphatase 95 Total Creatine Kinase 114 CK-MB (CK-2) 8.24 H CK-MB (CK-2) Rel Index 7.2 H* Troponin I 0.210 H* NT-Pro-B Natriuret Pep Total Protein 6.5 Albumin 3.6 Globulin 2.9 Albumin/Globulin Ratio 1.2 Lipase 140 SARS-CoV-2 (PCR) Negative 10/15/21 10/15/21 10/15/21 17:10 17:10 17:10 WBC RBC Hgb Hct MCV MCH MCHC RDW Plt Count Neut % (Auto) Lymph % (Auto) [place] % (Auto) Eos % (Auto) Baso % (Auto) Neut # (Auto) Lymph # (Auto) [place] # (Auto) Eos # (Auto) Baso # (Auto) PT 15.5 H INR 1.4 H APTT 30 ABG pH ABG pCO2 ABG pO2 ABG HCO3 ABG Total CO2 ABG O2 Saturation ABG Base Excess FiO2 Sodium Potassium Chloride Carbon Dioxide BUN Creatinine Estimated GFR BUN/Creatinine Ratio Glucose Lactate 3.4 H Calcium Magnesium Total Bilirubin AST ALT Alkaline Phosphatase Total Creatine Kinase CK-MB (CK-2) CK-MB (CK-2) Rel Index Troponin I NT-Pro-B Natriuret Pep 8210 H Total Protein Albumin Globulin Albumin/Globulin Ratio Lipase SARS-CoV-2 (PCR) 10/15/21 10/15/21 17:38 19:56 WBC RBC Hgb Hct MCV MCH MCHC RDW Plt Count Neut % (Auto) Lymph % (Auto) [place] % (Auto) Eos % (Auto) Baso % (Auto) Neut # (Auto) Lymph # (Auto) [place] # (Auto) Eos # (Auto) Baso # (Auto) PT INR APTT ABG pH 7.36 ABG pCO2 61.4 H* ABG pO2 66 L ABG HCO3 35 H ABG Total CO2 36 H ABG O2 Saturation 91 L ABG Base Excess 9.0 H FiO2 21 Sodium Potassium Chloride Carbon Dioxide BUN Creatinine Estimated GFR BUN/Creatinine Ratio Glucose Lactate 1.6 Calcium Magnesium Total Bilirubin AST ALT Alkaline Phosphatase Total Creatine Kinase CK-MB (CK-2) CK-MB (CK-2) Rel Index Troponin I NT-Pro-B Natriuret Pep Total Protein Albumin Globulin Albumin/Globulin Ratio Lipase SARS-CoV-2 (PCR) Assessment & Plan Assessment & Plan narrative: 66F with COPD/Tobacco abuse admitted with AFib/RVR and volume overload 1. Afib with RVR, suspect due to HF/volume overload. Improved with Esmolol drip - no Cardizem available due to shortage per RN - Continue Esmolol drip, half-dose given hypotension earlier. Cautious with BB in the setting of suspected HF decompensation. - If BP unable to tolerate Esmolol and persistent RVR, would initiate Amiodarone bolus & drip - Check TSH 2. Volume Overload with Pulmonary Edema, Ascites, LE swelling. Elevated BNP. LFTs mildly elevated. Cr WNL. Suspect Heart Failure. - Obtain TTE - Recommend Lasix Q12H, goal net negative 1L/day as tolerated. Check BMP/lytes Q12H with aggressive repletion - Mg 2g now given Afib, level <2 currently - Strict Ins/Outs 3. NSTEMI. Elevated trop, no STEMI per ER on EKG. Received ASA, on Hep drip. CP free currently - Continue Heparin drip - Follow repeat troponins - Follow up Cardiology recs - Continue daily ASA - Workup above of suspected HF 4. History of COPD. Chronic Resp Acidosis on ABG noted. Elevated Hgb and CO2 - compensation noted - Continue NC if needed, sat goal is 88-92% - PRN Nebs, cautious with Albuterol in setting of AFib with RVR - Consider restarting previous COPD home meds (patient reports recent noncompliance) - Smoking cessation education. May need nicotine patch while hospitalized 5. Elevated LFTs. With mild INR elevation, low platelets, abdominal ascites. Most likely congestive hepatopathy - Trend LFTs - Consider US Abdomen for further workup 6. Diarrhea >2 weeks. Unclear etiology, possible due to edema - If ongoing, consider stool studies 7. Hyponatremia. Asymptomatic. Most likely due to hypervolemia - Volume management as above Time Spent With Patient Critical Care time: I spent a total of [35] minutes of critical care time on this patient's care today; this time is exclusive of procedural time.
[2021-10-15] MEDS: MAGNESIUM SULFATE 2 GM/50 ML PIGGYBACK IV (22:12)
[2021-10-15 22:24] LABS: Hemoglobin A1C% w Est Avg Glu 7.1 % (4.0-6.0)
[2021-10-15 23:11] LABS: Free T4, Direct Thyroxine 1.81 ng/dL (0.78-2.19)
[2021-10-15 23:12] LABS: Troponin I 0.361 ng/mL (0.01-0.034)
[2021-10-16] VITALS (31 sets, daily range): BP systolic 83–106; BP diastolic 50–67; PULSE 72–134; RESP 15–31; TEMP 36.6–36.9; O2SAT 89–95
[2021-10-16 00:23] LABS: Thyroid Stimulating Hormone 3.45 uIU/mL (0.47-4.68)
[2021-10-16 04:07] LABS: PTT Partial Thromboplastin Tim 99 SECONDS (26.4-36.2)
[2021-10-16 05:56] LABS: Add Manual Diff / Slide Review NO; Basophils Absolute Auto 0 /uL (0-100); Basophils Percent Auto 0.5 % (0-2); Eosinophils Absolute Auto 0 /uL (0-450); Eosinophils Percent Auto 0.7 % (2-4); Hematocrit 54.7 % (36-46); Hemoglobin 17.4 g/dL (12.0-16.0); Lymphocytes Absolute Auto 900 /uL (1100-4500); Lymphocytes Percent Auto 12.8 % (25-40); Mean Corpuscular HGB Conc 31.8 % (30-36); Monocytes Absolute Auto 1000 /uL (0-900); Monocytes Percent Auto 14.6 % (3-14); Neutrophils Absolute Auto 4800 /uL (1500-7000); Neutrophils Percent Auto 71.4 % (50-75); Platelet Count 114 X10^3/uL (150-400); Red Blood Cell Count 6.44 X10^6/uL (4.0-5.2); Red Cell Distribution Width 17.3 % (11.6-14.8); White Blood Cell Count 6.7 X10^3/uL (4.5-11.0)
[2021-10-16 06:07] LABS: Alanine Aminotransferase 56 IU/L (<35); Albumin 2.6 g/dL (3.5-5.0); Albumin Globulin Ratio 1.1 (1.0-2.8); Alkaline Phosphatase 54 U/L (38-126); Aspartate Aminotransferase 61 IU/L (14-36); BUN Creatinine Ratio 29.6 (6-22); Bilirubin Total 1.6 mg/dL (0.2-1.3); Bilirubin Unconjugated 1.2 mg/dL (0.0-1.1); Blood Urea Nitrogen 24 mg/dL (7-17); Calcium 8.2 mg/dL (8.4-10.2); Carbon Dioxide 39 mmol/L (22-32); Chloride 91 mmol/L (98-107); Cholesterol 100 mg/dL (140-199); Estimated Glomerular Filt Rate > 60.0 mL/min (>60); Globulin 2.4 g/dL (1.7-4.1); Glucose 99 mg/dL (80-110); HDL Cholesterol 20 mg/dL (40-60); HEMOLYSIS 21 (0-50); LDL Cholesterol Calculated 62 mg/dL (<100); Magnesium 1.9 mg/dL (1.6-2.3); Potassium 4.4 mmol/L (3.4-5.1); Sodium 129 mmol/L (137-145); Triglycerides 88 mg/dL (35-150)
[2021-10-16 06:20] LABS: Troponin I 0.741 ng/mL (0.01-0.034)
--- NOTE | 2021-10-16 07:40 | PC.NURSE ---
Shift Note: Received patient from ER, alert and orientedx4, denies any pain, on O2 support at 3LPM by nasal cannula. On heparin drip at 1000 units/hr, per protocol. Afib and A-flutter in the monitor with episode of V-tac with occassional PVCs, HR 130s, Esmolol drip restarted at 4mls, being titrated. ICU tele revenue cycle specialist notified and orders were given. Will continue to monitor.
[2021-10-16] MEDS: ASPIRIN EC 81 MG TABLET PO (08:54)
[2021-10-16] MEDS: METOPROLOL IR 25 MG TABLET PO (08:54)
[2021-10-16] MEDS: NICOTINE 14 PATCH 14 MG TOP (08:55)
[2021-10-16] MEDS: FUROSEMIDE 20 MG/2 ML VIAL 40 MG IV (08:55)
[2021-10-16 09:18] LABS: PCO2 ABG 61.4 mmHg (35-45)
--- NOTE | 2021-10-16 10:17 | PM.PN.EICU ---
Subjective Subjective :: This patient was seen in the Intensive Care Unit via real time interactive two-way audiovisual telecommunication. Patient Summary: 66F with a history of COPD and tobacco use, otherwise no known significant medical history (has not seen a physician for many years) admitted with Afib with RVR, NSTEMI, and CHF. She was initially placed on Esmolol drip but it was stopped because of hypotension. Recent events: -Patient still in AFib, HR 90-130s, SBP 80-100s -Pt. on 3L nc -On Lasix 40 mg BID, patient is 1.2 L net neg in last 24 hours -Trop continues to trend up (last one was 0.7) but pt. is chest pain free Current Medications Current Medications Medications: Home Medications famotidine 20 mg tablet (Pepcid) 20 mg PO DAILY PRN 10/15/21 [History Confirmed 10/15/21] Visit Medications (administered) Generic Name Dose Route Start Last Admin Trade Name Freq PRN Reason Stop Dose Admin Aspirin 81 mg 10/16/21 09:00 10/16/21 08:54 Aspirin Ec 81 Mg Tablet PO 81 mg DAILY TRUONG Administration Furosemide 40 mg 10/16/21 09:00 10/16/21 08:55 Furosemide 20 Mg/2 Ml Vial IV 40 mg BID TRUONG Administration Heparin Sodium/Dextrose 25,000 unit in 500 mls @ 20 mls/hr 10/15/21 18:15 10/16/21 04:00 Heparin Drip IV 900 units/hr CONT TRUONG 18 mls/hr Titration Protocol 1,000 UNITS/HR Esmolol HCl 2.5 gm in 250 mls @ 22.453 mls/hr 10/15/21 18:15 10/16/21 07:57 Brevibloc IV 0 mcg/kg/min TITRATE TRUONG 0 mls/hr Titration Protocol 50 MCG/KG/MIN Esmolol HCl 2.5 gm in 250 mls @ 0 mls/hr 10/15/21 21:45 10/16/21 07:33 Brevibloc IV Not Given TITRATE TRUONG Protocol Per Protocol Insulin Human Lispro 0 unit 10/16/21 07:45 10/16/21 07:44 Insulin Lispro 100 Unit/Ml 3ml Vial SUBCUT Not Given ACHS TRUONG Protocol Nicotine 14 mg 10/16/21 09:00 10/16/21 08:55 Nicotine 14 Patch TOP 14 mg DAILY TRUONG Administration Objective Labs Result Diagrams: 10/16/21 05:45 10/16/21 05:45 Labs: Laboratory Results - last 24 hr 10/15/21 10/15/21 10/15/21 17:10 17:10 17:10 WBC 7.2 RBC 6.93 H Hgb 19.0 H Hct 59.7 H MCV 86.2 MCH 27.5 MCHC 31.9 RDW 17.5 H Plt Count 148 L Neut % (Auto) 78.9 H Lymph % (Auto) 7.5 L [place] % (Auto) 12.6 Eos % (Auto) 0.7 L Baso % (Auto) 0.3 Neut # (Auto) 5700 Lymph # (Auto) 500 L [place] # (Auto) 900 Eos # (Auto) 0 Baso # (Auto) 0 PT INR APTT ABG pH ABG pCO2 ABG pO2 ABG HCO3 ABG Total CO2 ABG O2 Saturation ABG Base Excess FiO2 Sodium 128 L Potassium 4.9 Chloride 92 L Carbon Dioxide 31 BUN 23 H Creatinine 0.81 Estimated GFR > 60.0 BUN/Creatinine Ratio 28.4 H Glucose 129 H Hemoglobin A1c Lactate Calcium 9.1 Magnesium 1.8 Total Bilirubin 2.8 H Conjugated Bilirubin Unconjugated Bilirubin AST 94 H ALT 70 H Alkaline Phosphatase 95 Total Creatine Kinase 114 CK-MB (CK-2) 8.24 H CK-MB (CK-2) Rel Index 7.2 H* Troponin I 0.210 H* NT-Pro-B Natriuret Pep Total Protein 6.5 Albumin 3.6 Globulin 2.9 Albumin/Globulin Ratio 1.2 Triglycerides Cholesterol LDL Cholesterol, Calc HDL Cholesterol Lipase 140 TSH Free T4 Nasal Screen MRSA (PCR) SARS-CoV-2 (PCR) Negative 10/15/21 10/15/21 10/15/21 17:10 17:10 17:10 WBC RBC Hgb Hct MCV MCH MCHC RDW Plt Count Neut % (Auto) Lymph % (Auto) [place] % (Auto) Eos % (Auto) Baso % (Auto) Neut # (Auto) Lymph # (Auto) [place] # (Auto) Eos # (Auto) Baso # (Auto) PT 15.5 H INR 1.4 H APTT 30 ABG pH ABG pCO2 ABG pO2 ABG HCO3 ABG Total CO2 ABG O2 Saturation ABG Base Excess FiO2 Sodium Potassium Chloride Carbon Dioxide BUN Creatinine Estimated GFR BUN/Creatinine Ratio Glucose Hemoglobin A1c Lactate 3.4 H Calcium Magnesium Total Bilirubin Conjugated Bilirubin Unconjugated Bilirubin AST ALT Alkaline Phosphatase Total Creatine Kinase CK-MB (CK-2) CK-MB (CK-2) Rel Index Troponin I NT-Pro-B Natriuret Pep 8210 H Total Protein Albumin Globulin Albumin/Globulin Ratio Triglycerides Cholesterol LDL Cholesterol, Calc HDL Cholesterol Lipase TSH Free T4 Nasal Screen MRSA (PCR) SARS-CoV-2 (PCR) 10/15/21 10/15/21 10/15/21 17:10 17:38 19:56 WBC RBC Hgb Hct MCV MCH MCHC RDW Plt Count Neut % (Auto) Lymph % (Auto) [place] % (Auto) Eos % (Auto) Baso % (Auto) Neut # (Auto) Lymph # (Auto) [place] # (Auto) Eos # (Auto) Baso # (Auto) PT INR APTT ABG pH 7.36 ABG pCO2 61.4 H* ABG pO2 66 L ABG HCO3 35 H ABG Total CO2 36 H ABG O2 Saturation 91 L ABG Base Excess 9.0 H FiO2 21 Sodium Potassium Chloride Carbon Dioxide BUN Creatinine Estimated GFR BUN/Creatinine Ratio Glucose Hemoglobin A1c 7.1 H Lactate 1.6 Calcium Magnesium Total Bilirubin Conjugated Bilirubin Unconjugated Bilirubin AST ALT Alkaline Phosphatase Total Creatine Kinase CK-MB (CK-2) CK-MB (CK-2) Rel Index Troponin I NT-Pro-B Natriuret Pep Total Protein Albumin Globulin Albumin/Globulin Ratio Triglycerides Cholesterol LDL Cholesterol, Calc HDL Cholesterol Lipase TSH Free T4 Nasal Screen MRSA (PCR) SARS-CoV-2 (PCR) 10/15/21 10/15/21 10/16/21 22:28 22:28 03:30 WBC RBC Hgb Hct MCV MCH MCHC RDW Plt Count Neut % (Auto) Lymph % (Auto) [place] % (Auto) Eos % (Auto) Baso % (Auto) Neut # (Auto) Lymph # (Auto) [place] # (Auto) Eos # (Auto) Baso # (Auto) PT INR APTT 99 H* D ABG pH ABG pCO2 ABG pO2 ABG HCO3 ABG Total CO2 ABG O2 Saturation ABG Base Excess FiO2 Sodium Potassium Chloride Carbon Dioxide BUN Creatinine Estimated GFR BUN/Creatinine Ratio Glucose Hemoglobin A1c Lactate Calcium Magnesium Total Bilirubin Conjugated Bilirubin Unconjugated Bilirubin AST ALT Alkaline Phosphatase Total Creatine Kinase CK-MB (CK-2) CK-MB (CK-2) Rel Index Troponin I 0.361 H* NT-Pro-B Natriuret Pep Total Protein Albumin Globulin Albumin/Globulin Ratio Triglycerides Cholesterol LDL Cholesterol, Calc HDL Cholesterol Lipase TSH 3.45 Free T4 1.81 Nasal Screen MRSA (PCR) SARS-CoV-2 (PCR) 10/16/21 10/16/21 10/16/21 05:45 05:45 05:45 WBC 6.7 RBC 6.44 H Hgb 17.4 H Hct 54.7 H MCV 85.0 MCH 27.0 MCHC 31.8 RDW 17.3 H Plt Count 114 L Neut % (Auto) 71.4 Lymph % (Auto) 12.8 L [place] % (Auto) 14.6 H Eos % (Auto) 0.7 L Baso % (Auto) 0.5 Neut # (Auto) 4800 Lymph # (Auto) 900 L [place] # (Auto) 1000 H Eos # (Auto) 0 Baso # (Auto) 0 PT INR APTT ABG pH ABG pCO2 ABG pO2 ABG HCO3 ABG Total CO2 ABG O2 Saturation ABG Base Excess FiO2 Sodium 129 L Potassium 4.4 Chloride 91 L Carbon Dioxide 39 H BUN 24 H Creatinine 0.81 Estimated GFR > 60.0 BUN/Creatinine Ratio 29.6 H Glucose 99 Hemoglobin A1c Lactate Calcium 8.2 L Magnesium 1.9 Total Bilirubin 1.6 H Conjugated Bilirubin 0.0 Unconjugated Bilirubin 1.2 H AST 61 H ALT 56 H Alkaline Phosphatase 54 Total Creatine Kinase CK-MB (CK-2) CK-MB (CK-2) Rel Index Troponin I 0.741 H* NT-Pro-B Natriuret Pep Total Protein 5.0 L Albumin 2.6 L Globulin 2.4 Albumin/Globulin Ratio 1.1 Triglycerides 88 Cholesterol 100 L LDL Cholesterol, Calc 62 HDL Cholesterol 20 L Lipase TSH Free T4 Nasal Screen MRSA (PCR) SARS-CoV-2 (PCR) 10/16/21 05:45 WBC RBC Hgb Hct MCV MCH MCHC RDW Plt Count Neut % (Auto) Lymph % (Auto) [place] % (Auto) Eos % (Auto) Baso % (Auto) Neut # (Auto) Lymph # (Auto) [place] # (Auto) Eos # (Auto) Baso # (Auto) PT INR APTT ABG pH ABG pCO2 ABG pO2 ABG HCO3 ABG Total CO2 ABG O2 Saturation ABG Base Excess FiO2 Sodium Potassium Chloride Carbon Dioxide BUN Creatinine Estimated GFR BUN/Creatinine Ratio Glucose Hemoglobin A1c Lactate Calcium Magnesium Total Bilirubin Conjugated Bilirubin Unconjugated Bilirubin AST ALT Alkaline Phosphatase Total Creatine Kinase CK-MB (CK-2) CK-MB (CK-2) Rel Index Troponin I NT-Pro-B Natriuret Pep Total Protein Albumin Globulin Albumin/Globulin Ratio Triglycerides Cholesterol LDL Cholesterol, Calc HDL Cholesterol Lipase TSH Free T4 Nasal Screen MRSA (PCR) Negative for mrsa SARS-CoV-2 (PCR) Exam Vital Signs (past 8 hours): - 10/16/21 03:00 10/16/21 03:05 10/16/21 03:15 Temperature Pulse Rate 127 H 118 H 98 H Respiratory Rate 24 19 18 Blood Pressure 98/64 96/57 L Pulse Oximetry 93 93 93 10/16/21 03:30 10/16/21 03:45 10/16/21 04:00 Temperature Pulse Rate 98 H 97 H 97 H Respiratory Rate 20 17 17 Blood Pressure 91/56 L 94/57 L 92/59 L Pulse Oximetry 93 91 92 10/16/21 04:15 10/16/21 04:30 10/16/21 04:45 Temperature Pulse Rate 99 H 119 H 101 H Respiratory Rate 15 25 H 24 Blood Pressure 93/57 L 91/57 L 94/55 L Pulse Oximetry 92 91 92 10/16/21 05:00 10/16/21 05:15 10/16/21 05:31 Temperature Pulse Rate 98 H 97 H 117 H Respiratory Rate 16 15 18 Blood Pressure 88/56 L 83/50 L 95/56 L Pulse Oximetry 94 93 94 10/16/21 05:45 10/16/21 05:51 10/16/21 06:00 Temperature Pulse Rate 123 H 122 H 100 H Respiratory Rate 17 18 17 Blood Pressure 101/65 95/58 L Pulse Oximetry 95 94 94 10/16/21 06:15 10/16/21 06:55 10/16/21 08:00 Temperature 98.4 F Pulse Rate 98 H 100 H 120 H Respiratory Rate 21 16 19 Blood Pressure 88/52 L 93/58 L Pulse Oximetry 93 94 92 10/16/21 09:00 Temperature Pulse Rate 134 H Respiratory Rate 27 H Blood Pressure 101/64 Pulse Oximetry 93 Oxygen Delivery Method Nasal Cannula Oxygen Flow Rate 3 Narrative Exam Narrative: Patient seen sitting comfortably in bed Quality TeleICU VTE Deep Vein Thrombosis/Pulmonary Embolism Present on Admission: No Assessment & Plan Assessment & Plan narrative: Assessment Afib with RVR CHF exacerbation NSTEMI h/o of COPD Hyponatremia- probably from CHF Diarrhea-resolved Plan Afib with RVR -last HR was in 90's but if it goes up above 100 again will start Amio drip -given BP borderline low will reduce metropolol from 25 to 12.5 mg QID NSTEMI -heparni drip -defer to construction equipment technician if and when pt. should get cardiac cath -aspirin and statin -trend troponin till it trends down CHF excerbation -continue diuresis with Lasix 40mg IV BID -monitor and replace electrolytes as needed CCT spent 50 min Time Spent With Patient Critical Care time: I spent a total of [] minutes of critical care time on this patient's care today; this time is exclusive of procedural time.
--- NOTE | 2021-10-16 11:30 | DIET.CONS ---
Dietary Consultation Note Admission Date: 10/15/2021 19:31 Assessment: 66y F admitted with bilateral LE edema to the abdomen found to have Afib c RVR, NSTEMI, and CHF referred to nutrition for new dx DM2. Pt not followed by PCP since moving to [facility] from [place] 6y ago. Pt has known COPD and reports her physician in [place] monitored her BG (likely preDM). Pts A1c 7.1, however this hospitalization has not needed correctional insulin and FBGs have been well under 100 (83, 95). Pt's is vegetarian, so she often eats [id number] as well, mostly beans, nuts, eggs for protein. Pt reports eating abnormally during September because of frequent diarrhea and early satiety from swelling. Pt reports regular consumption of pasta and orange juice (6-8oz) but may have been eating more and moving her body less this month. Ht: 160.02 cm Wt: 88 kg BMI: 34.3 Last BM: 10/15/21 (10/15/21 20:06) MNA: 9 Francisco J Score: 22 Diet: 10/16/21 Breakfast Carbohydrate Consistent Diet Diet Modifications: Carbohydrate level: Large (4 CHO) Bedtime snack: Yes Fluid Restriction Diet Diet Modifications: Total fluid amount: 1,000 Amount allotted to patient trays: 333 Free water included in total: Yes Fluid in addition to trays: [id number] amount: 800 [id number] amount: 200 Nutrition Percent Meal Consumed 100% 10/16/21 09:22 Percent Meal Consumed Snacks Provided 10/16/21 02:50 Labs: RBC 6.44 X10^6/uL (4.0-5.2) H 10/16/21 05:45 Hgb 17.4 g/dL (12.0-16.0) H 10/16/21 05:45 Hct 54.7 % (36-46) H 10/16/21 05:45 Creatinine 0.81 mg/dL (0.52-1.04) 10/16/21 05:45 Hemoglobin A1c 7.1 % (4.0-6.0) H 10/15/21 17:10 Lactate 1.6 mmol/L (0.7-2.1) 10/15/21 19:56 NT-Pro-B Natriuret Pep 8210 pg/mL (<125) H 10/15/21 17:10 Nutrition Diagnosis: altered nutrition related laboratory value (A1c) r/t abnormal diet x1mo aeb A1c 7.1, pt reports increased intake processed foods and juice over past 4-6 weeks r/t frequent diarrhea, pts FBG WNL (83, 95). Interventions: 1. Provided pre-DM MNT to patient including indications for 10% weight loss through increased physical activity, limiting pasta portion to 1 cup, limiting juice to 4oz/day, and ensuring plate balance with protein at each meal and snack keeping CHO to 1/4 plate. Electronically Signed by: Pooja Rodríguez 10/16/21 11:30 Clinical Dietitian [place] [id number] [place] [address]
--- NOTE | 2021-10-16 11:42 | P.CONS_ITS ---
History of Present Illness Consult details Date Patient Seen: 10/16/21 Time Patient Seen: 11:43 Chief complaint: Atrial flutter with Reason for consult: Assist with heart failure Requesting provider: Radha Zhang Narrative: The patient is a 66-year-old long-term smoker with COPD but no previous cardiac history who presented to urgent care yesterday with a 2 month history of progressive fatigue, dyspnea, and mild lightheadedness but without any perception palpitations or chest discomfort. She had noted worsening pedal edema and abdominal distention for the week prior to admission with 3 to 4 weeks of loose stools. At urgent care, she was found to be in atrial flutter at 150 ppm with a resting oxygen saturation of 83% was sent to the emergency department where her initial blood pressure was 185/114. She had no chest discomfort although her initial troponin was mildly elevated at 0.2. Her laboratory was notable for significant erythrocytosis with a hemoglobin of 19 and a hematocrit of 60%. LFTs were mildly abnormal with an AST of 94 and ALT of 70 and a proBNP was 8210. TSH was normal. Her ABG showed a pH of 7.36 with a pCO2 of 61 and a PO2 of 66. Her chest x-ray showed small bilateral pleural effusions with diffuse interstitial prominence and a CT angiogram showed enlargement of the pulmonary artery consistent with pulmonary hypertension but no obvious pulmonary embolism. She was initially treated with IV diltiazem but with minimal response was changed as fall with better control of her heart rate with blood pressures in the 90s and has been converted to oral metoprolol. With this, her symptoms have improved. Her troponin has increased mildly to 0.74 but she remains free of any chest discomfort. She has been diuresed with furosemide 40 mg IV b.i.d. and has diuresed now around 1.2 L with blood pressures in the 90s. Her echocardiogram from earlier today showed an LVEF of 30 to 35% with normal left ventricular size without any focal wall motion abnormality. There is moderate to severe right ventricular enlargement and hypokinesis with moderate to severe tricuspid regurgitation and pulmonary artery pressures are at least 35 mm Hg, likely significantly higher, with a CVP 15 mmHg with severe right atrial enlargement with bowing of the interatrial septum from right to left, consistent with increased right atrial pressures. Atherosclerotic plaque was noted within proximal aorta. She reports feeling much improved since admission with less abdominal distention. She continues to deny any sense of palpitations or chest discomfort. Her cardiac risk factors include smoking up to a pack per day for the last 50 years, more recently half a pack per day. She denies any history of hypertension hyperlipidemia and her current lipid panel shows a total cholesterol of 100 with an HDL of 20 and LDL of 62. There is no history of any diabetes. Her family history is notable for a father who had an GA in his 60s and both grandfathers had some type of heart disease but at elderly age. Her past medical history is otherwise unremarkable except for hysterectomy and she has not seen physicians in the last 6 to 7 years. She is a retired teacher in daycare worker who lives with her in [place] and rarely drinks alcohol. Complete review of systems is performed and is notable only for a chronic cough that has been nonproductive. She denies any evidence of GI or genitourinary bleeding. She denies any neurologic symptoms. Meds Home Medications and Allergies Home Medications Medication Instructions Recorded Confirmed Type famotidine 20 mg tablet (Pepcid) 20 mg PO DAILY PRN 10/15/21 10/15/21 History Allergies Allergy/AdvReac Type Severity Reaction Status Date / Time Penicillins Allergy Verified 10/15/21 17:03 Exam Vital Signs (past 8 hours): - 10/16/21 03:45 10/16/21 04:00 10/16/21 04:15 Temperature Pulse Rate 97 H 97 H 99 H Respiratory Rate 17 17 15 Blood Pressure 94/57 L 92/59 L 93/57 L Pulse Oximetry 91 92 92 10/16/21 04:30 10/16/21 04:45 10/16/21 05:00 Temperature Pulse Rate 119 H 101 H 98 H Respiratory Rate 25 H 24 16 Blood Pressure 91/57 L 94/55 L 88/56 L Pulse Oximetry 91 92 94 10/16/21 05:15 10/16/21 05:31 10/16/21 05:45 Temperature Pulse Rate 97 H 117 H 123 H Respiratory Rate 15 18 17 Blood Pressure 83/50 L 95/56 L 101/65 Pulse Oximetry 93 94 95 10/16/21 05:51 10/16/21 06:00 10/16/21 06:15 Temperature Pulse Rate 122 H 100 H 98 H Respiratory Rate 18 17 21 Blood Pressure 95/58 L 88/52 L Pulse Oximetry 94 94 93 10/16/21 06:55 10/16/21 08:00 10/16/21 09:00 Temperature 98.4 F Pulse Rate 100 H 120 H 134 H Respiratory Rate 16 19 27 H Blood Pressure 93/58 L 101/64 Pulse Oximetry 94 92 93 Oxygen Delivery Method Nasal Cannula Oxygen Flow Rate 3 Const Other: Moderately obese elderly female in no distress HENIN Other: EOMI with fairly prominent arcus Resp Other: Markedly reduced breath sounds throughout without any appreciable rales or wheeze Cardio Other: Irregularly regular rhythm with distant heart tones. Normal S1 and S2, no appreciable murmurs or gallops. JVP is 6 to 9 cm with a fairly prominent V- wave. Carotid pulses are 2+ bilaterally with normal upstroke no bruit. Dorsalis pedis pulses are nonpalpable. GI Other: Moderately obese but nondistended nontender without any palpable masses or hepatosplenomegaly Skin Other: Warm and dry Neuro Other: Grossly nonfocal, moves all extremities Extrem Other: Warm with distal cyanosis predominantly of the fingers but without any obvious clubbing. There is 2 to 3+ bilateral pitting edema up to the upper thigh Psych Other: Awake, alert, and appropriate Objective ECG Impression: From earlier today is personally reviewed shows atrial flutter at 97 beats per minute with an incomplete RBBB but no significant ST segment abnormalities Labs Result Diagrams: 10/16/21 05:45 10/16/21 05:45 Labs: Laboratory Results - last 24 hr 10/15/21 10/15/21 10/15/21 17:10 17:10 17:10 WBC 7.2 RBC 6.93 H Hgb 19.0 H Hct 59.7 H MCV 86.2 MCH 27.5 MCHC 31.9 RDW 17.5 H Plt Count 148 L Neut % (Auto) 78.9 H Lymph % (Auto) 7.5 L [place] % (Auto) 12.6 Eos % (Auto) 0.7 L Baso % (Auto) 0.3 Neut # (Auto) 5700 Lymph # (Auto) 500 L [place] # (Auto) 900 Eos # (Auto) 0 Baso # (Auto) 0 PT INR APTT ABG pH ABG pCO2 ABG pO2 ABG HCO3 ABG Total CO2 ABG O2 Saturation ABG Base Excess FiO2 Sodium 128 L Potassium 4.9 Chloride 92 L Carbon Dioxide 31 BUN 23 H Creatinine 0.81 Estimated GFR > 60.0 BUN/Creatinine Ratio 28.4 H Glucose 129 H Hemoglobin A1c Lactate Calcium 9.1 Magnesium 1.8 Total Bilirubin 2.8 H Conjugated Bilirubin Unconjugated Bilirubin AST 94 H ALT 70 H Alkaline Phosphatase 95 Total Creatine Kinase 114 CK-MB (CK-2) 8.24 H CK-MB (CK-2) Rel Index 7.2 H* Troponin I 0.210 H* NT-Pro-B Natriuret Pep Total Protein 6.5 Albumin 3.6 Globulin 2.9 Albumin/Globulin Ratio 1.2 Triglycerides Cholesterol LDL Cholesterol, Calc HDL Cholesterol Lipase 140 TSH Free T4 Nasal Screen MRSA (PCR) SARS-CoV-2 (PCR) Negative 10/15/21 10/15/21 10/15/21 17:10 17:10 17:10 WBC RBC Hgb Hct MCV MCH MCHC RDW Plt Count Neut % (Auto) Lymph % (Auto) [place] % (Auto) Eos % (Auto) Baso % (Auto) Neut # (Auto) Lymph # (Auto) [place] # (Auto) Eos # (Auto) Baso # (Auto) PT 15.5 H INR 1.4 H APTT 30 ABG pH ABG pCO2 ABG pO2 ABG HCO3 ABG Total CO2 ABG O2 Saturation ABG Base Excess FiO2 Sodium Potassium Chloride Carbon Dioxide BUN Creatinine Estimated GFR BUN/Creatinine Ratio Glucose Hemoglobin A1c Lactate 3.4 H Calcium Magnesium Total Bilirubin Conjugated Bilirubin Unconjugated Bilirubin AST ALT Alkaline Phosphatase Total Creatine Kinase CK-MB (CK-2) CK-MB (CK-2) Rel Index Troponin I NT-Pro-B Natriuret Pep 8210 H Total Protein Albumin Globulin Albumin/Globulin Ratio Triglycerides Cholesterol LDL Cholesterol, Calc HDL Cholesterol Lipase TSH Free T4 Nasal Screen MRSA (PCR) SARS-CoV-2 (PCR) 10/15/21 10/15/21 10/15/21 17:10 17:38 19:56 WBC RBC Hgb Hct MCV MCH MCHC RDW Plt Count Neut % (Auto) Lymph % (Auto) [place] % (Auto) Eos % (Auto) Baso % (Auto) Neut # (Auto) Lymph # (Auto) [place] # (Auto) Eos # (Auto) Baso # (Auto) PT INR APTT ABG pH 7.36 ABG pCO2 61.4 H* ABG pO2 66 L ABG HCO3 35 H ABG Total CO2 36 H ABG O2 Saturation 91 L ABG Base Excess 9.0 H FiO2 21 Sodium Potassium Chloride Carbon Dioxide BUN Creatinine Estimated GFR BUN/Creatinine Ratio Glucose Hemoglobin A1c 7.1 H Lactate 1.6 Calcium Magnesium Total Bilirubin Conjugated Bilirubin Unconjugated Bilirubin AST ALT Alkaline Phosphatase Total Creatine Kinase CK-MB (CK-2) CK-MB (CK-2) Rel Index Troponin I NT-Pro-B Natriuret Pep Total Protein Albumin Globulin Albumin/Globulin Ratio Triglycerides Cholesterol LDL Cholesterol, Calc HDL Cholesterol Lipase TSH Free T4 Nasal Screen MRSA (PCR) SARS-CoV-2 (PCR) 10/15/21 10/15/21 10/16/21 22:28 22:28 03:30 WBC RBC Hgb Hct MCV MCH MCHC RDW Plt Count Neut % (Auto) Lymph % (Auto) [place] % (Auto) Eos % (Auto) Baso % (Auto) Neut # (Auto) Lymph # (Auto) [place] # (Auto) Eos # (Auto) Baso # (Auto) PT INR APTT 99 H* D ABG pH ABG pCO2 ABG pO2 ABG HCO3 ABG Total CO2 ABG O2 Saturation ABG Base Excess FiO2 Sodium Potassium Chloride Carbon Dioxide BUN Creatinine Estimated GFR BUN/Creatinine Ratio Glucose Hemoglobin A1c Lactate Calcium Magnesium Total Bilirubin Conjugated Bilirubin Unconjugated Bilirubin AST ALT Alkaline Phosphatase Total Creatine Kinase CK-MB (CK-2) CK-MB (CK-2) Rel Index Troponin I 0.361 H* NT-Pro-B Natriuret Pep Total Protein Albumin Globulin Albumin/Globulin Ratio Triglycerides Cholesterol LDL Cholesterol, Calc HDL Cholesterol Lipase TSH 3.45 Free T4 1.81 Nasal Screen MRSA (PCR) SARS-CoV-2 (PCR) 10/16/21 10/16/21 10/16/21 05:45 05:45 05:45 WBC 6.7 RBC 6.44 H Hgb 17.4 H Hct 54.7 H MCV 85.0 MCH 27.0 MCHC 31.8 RDW 17.3 H Plt Count 114 L Neut % (Auto) 71.4 Lymph % (Auto) 12.8 L [place] % (Auto) 14.6 H Eos % (Auto) 0.7 L Baso % (Auto) 0.5 Neut # (Auto) 4800 Lymph # (Auto) 900 L [place] # (Auto) 1000 H Eos # (Auto) 0 Baso # (Auto) 0 PT INR APTT ABG pH ABG pCO2 ABG pO2 ABG HCO3 ABG Total CO2 ABG O2 Saturation ABG Base Excess FiO2 Sodium 129 L Potassium 4.4 Chloride 91 L Carbon Dioxide 39 H BUN 24 H Creatinine 0.81 Estimated GFR > 60.0 BUN/Creatinine Ratio 29.6 H Glucose 99 Hemoglobin A1c Lactate Calcium 8.2 L Magnesium 1.9 Total Bilirubin 1.6 H Conjugated Bilirubin 0.0 Unconjugated Bilirubin 1.2 H AST 61 H ALT 56 H Alkaline Phosphatase 54 Total Creatine Kinase CK-MB (CK-2) CK-MB (CK-2) Rel Index Troponin I 0.741 H* NT-Pro-B Natriuret Pep Total Protein 5.0 L Albumin 2.6 L Globulin 2.4 Albumin/Globulin Ratio 1.1 Triglycerides 88 Cholesterol 100 L LDL Cholesterol, Calc 62 HDL Cholesterol 20 L Lipase TSH Free T4 Nasal Screen MRSA (PCR) SARS-CoV-2 (PCR) 10/16/21 05:45 WBC RBC Hgb Hct MCV MCH MCHC RDW Plt Count Neut % (Auto) Lymph % (Auto) [place] % (Auto) Eos % (Auto) Baso % (Auto) Neut # (Auto) Lymph # (Auto) [place] # (Auto) Eos # (Auto) Baso # (Auto) PT INR APTT ABG pH ABG pCO2 ABG pO2 ABG HCO3 ABG Total CO2 ABG O2 Saturation ABG Base Excess FiO2 Sodium Potassium Chloride Carbon Dioxide BUN Creatinine Estimated GFR BUN/Creatinine Ratio Glucose Hemoglobin A1c Lactate Calcium Magnesium Total Bilirubin Conjugated Bilirubin Unconjugated Bilirubin AST ALT Alkaline Phosphatase Total Creatine Kinase CK-MB (CK-2) CK-MB (CK-2) Rel Index Troponin I NT-Pro-B Natriuret Pep Total Protein Albumin Globulin Albumin/Globulin Ratio Triglycerides Cholesterol LDL Cholesterol, Calc HDL Cholesterol Lipase TSH Free T4 Nasal Screen MRSA (PCR) Negative for mrsa SARS-CoV-2 (PCR) PFSH Surgical History (Updated 10/16/21 @ 00:49 by JEAN Morales) Hx of hysterectomy Family History (Updated 10/16/21 @ 00:51 by JEAN Morales) Mother COPD (chronic obstructive pulmonary disease) Tobacco dependence due to cigarettes Father COPD (chronic obstructive pulmonary disease) Tobacco dependence due to cigarettes Grandfather Myocardial infarction Grandfather Heart disease Social History household members: spouse Tobacco & Substance Use Smoking Status: Current every day smoker alcohol intake: current Assessment & Plan Assessment and plan (1) COPD, severe: Problem details: She clearly has cor pulmonale. Pulmonary evaluation should be considered with aggressive treatment to optimize her respiratory status. Status: Acute Assessment & Plan narrative: 1. Atrial flutter with rapid ventricular response of uncertain duration. Given her absence of any sense of palpitations, the duration of her atrial flutter is unknown but I suspect has been persistent for some time, resulting in her left ventricular systolic dysfunction. Her heart rate has significantly improved with low-dose metoprolol I would continue the same but can be consolidated in a b.i.d. dosing at the time of discharge. If her rate control remains challenging with metoprolol limited by hypotension, digoxin can be added but with close observation of digoxin level. She has been started on IV anticoagulation and she should be transitioned to oral anticoagulation such as Eliquis. After 3 to 4 weeks of continuous anticoagulation, cardioversion can be considered. If she has recurrence of atrial flutter, an atrial flutter ablation could be considered. 2. Biventricular heart failure. I suspect that her reduced left ventricular systolic function is due to her rapid atrial flutter and hopefully will improve with better heart rate control. She clearly remains volume overloaded I would continue with gentle diuresis, with close observation of her renal function electrolytes, maintain a potassium level greater than 4.0 magnesium greater than 2.0. Low-dose KINJAL inhibitor could be considered for blood pressure will support it. The right ventricular dysfunction is most likely due to cor pulmonale from her severe COPD and her pulmonary issue should be aggressively addressed with pulmonary evaluation as an outpatient. 3. Erythrocytosis. Likely due to chronic hypoxia but further evaluation from a hematologic standpoint should be pursued. 4. Abnormal LFTs, likely due to hepatic congestion from right heart failure and appears to be improving. 5. Severe COPD with cor pulmonale. As above. I have strongly encouraged her to abstain from smoking. RECOMMENDATIONS: 1. Continue gentle diuresis and monitor electrolytes and renal function closely, keeping potassium greater than 4.0 and magnesium greater than 2.0. 2. Continue low-dose metoprolol and titrate as needed for heart rate control, consolidate to b.i.d. dosing at the time of discharge. If metoprolol is limited by hypotension, consider digoxin. 3. Continue with anticoagulation, converting to oral anticoagulation, preferably with Eliquis. 4. Pursue aggressive pulmonary treatment and continue to encouraged tobacco abstinence. 5. Consider further evaluation of her erythrocytosis. My colleagues will be available to look in on the patient tomorrow, as needed. Time Spent With Patient Critical Care time: I spent a total of 106 minutes of critical care time on this patient's care today; this time is exclusive of procedural time.
--- NOTE | 2021-10-16 11:43 | CM.DANOTE ---
DCP: Case received, EMR reviewed and met with patient. Introduced self and role. Was able to obtain information regarding patient's baseline activity status prior to hospitalization. DCP assessment completed with information currently available. Patient is a 66 year old female who admitted yesterday evening to the care of the hospitalist team. PCP: None Currently Payer: Medicare. Patient came to the hospital via private vehicle secondary to having increased swelling to her legs, and some loose stools. Patient holds diagnosis of atrial fibrillation with RVR, CHF, NSTEMI, and new diagnosis of diabetes type 2. Patient has not seen a provider in the last few years. Patient is an active smoker of about 10 cigarettes a day. Met with patient in her room. She is alert and oriented. She resides here in [place] with her spouse, Telly. She is independent at her baseline. Asked her about seeing providers, she stated, I haven't seen one in years, didn't have to, but am interested in seeing Tamara Salgado at what was [facility], now [facility] of [facility]. Let her know that this site planner can print out some resources for her. She may need to be following up with locker attendant. P: DCP to continue to follow for any needs. Tiffanie Gonzalez RN/[employer]er Discharge Planning/Care Management CM Discharge Assessment Start: 10/16/21 11:42 Freq: Status: Active Protocol: Document 10/16/21 11:42 (Rec: 10/16/21 11:43 [id number]) Discharge Planning Assessment Assigned Job Site Supervisor Tiffanie Gonzalez RN/[employer]er Advance Directives? No History Provided By Patient,Medical Record Prior Living Arrangements House Household Members spouse Type of transporation used prior to Drives own vehicle admit Independent with ADL's Yes Is patient alert and oriented? Yes Caregiver for Another No Barriers to Discharge No Discharge Plan Home Transportation Arrangement Spouse Referrals Initiated None needed Whiteboard Updated in Patient Room with Yes name and ext. # of Job Site Supervisor Review Status In Process Next Review Type Continued Stay Review
[2021-10-16 12:26] LABS: Creatine Kinase 66 U/L (30-135)
[2021-10-16 12:33] LABS: PTT Partial Thromboplastin Tim 100 SECONDS (26.4-36.2)
[2021-10-16 13:05] LABS: Troponin I 0.717 ng/mL (0.01-0.034)
[2021-10-16 14:25] LABS: BUN Creatinine Ratio 30.5 (6-22); Blood Urea Nitrogen 25 mg/dL (7-17); Chloride 89 mmol/L (98-107); Estimated Glomerular Filt Rate > 60.0 mL/min (>60); Glucose 101 mg/dL (80-110); Magnesium 1.8 mg/dL (1.6-2.3); Sodium 128 mmol/L (137-145)
[2021-10-16 14:32] LABS: HEMOLYSIS 25 (0-50)
[2021-10-16 14:35] LABS: Carbon Dioxide 43 mmol/L (22-32)
[2021-10-16] MEDS: MAGNESIUM SULFATE 2 GM/50 ML PIGGYBACK IV (16:46)
[2021-10-16] MEDS: METOPROLOL IR 25 MG TABLET 12.5 MG PO (16:47)
--- NOTE | 2021-10-16 17:36 | P.PN_ITS ---
Subjective Subjective Date Patient Seen: 10/16/21 Interval history: 66-year-old female admitted to the hospital with diarrhea, bilateral lower extremity swelling, increasing shortness of breath. Patient has been seen by Cardiology which is much appreciated. Appears that she has likely cor pulmonale from COPD and right heart failure. Patient also has atrial fibrillation/atrial flutter contributing to acute systolic heart failure. Her breathing has improved significantly. Heart rate has improved significantly. She continues to have bilateral pitting lower extremity edema. She is on oxygen although at home she does not usually use oxygen. She reports that she will quit smoking. Exam Vital Signs (past 8 hours): - 10/16/21 10:00 10/16/21 11:00 10/16/21 12:00 Temperature 97.9 F Pulse Rate 98 H 73 73 Respiratory Rate 17 21 31 H Blood Pressure 106/67 91/63 90/65 Pulse Oximetry 94 93 91 10/16/21 12:30 10/16/21 13:00 10/16/21 17:00 Temperature 97.8 F Pulse Rate 74 97 H 99 H Respiratory Rate 29 H 25 H 20 Blood Pressure 97/67 103/65 Pulse Oximetry 89 L 94 93 Oxygen Delivery Method Nasal Cannula Oxygen Flow Rate 3 Narrative Exam Narrative: Pleasant elderly female lying in bed in no obvious distress Resp Other: Lungs decreased breath sounds bilaterally Cardio Other: Cardiac exam: Irregularly irregular, normal S1-S2, 2/6 systolic ejection murmur GI Other: Abdomen soft nontender nondistended Extrem Other: 3+ pitting edema bilaterally Objective Labs Result Diagrams: 10/16/21 05:45 10/16/21 13:51 Labs: Laboratory Results - last 24 hr 10/15/21 10/15/21 10/15/21 17:10 17:10 17:10 WBC RBC Hgb Hct MCV MCH MCHC RDW Plt Count Neut % (Auto) Lymph % (Auto) Pike % (Auto) Eos % (Auto) Baso % (Auto) Neut # (Auto) Lymph # (Auto) Pike # (Auto) Eos # (Auto) Baso # (Auto) PT 15.5 H INR 1.4 H APTT 30 ABG pH ABG pCO2 ABG pO2 ABG HCO3 ABG Total CO2 ABG O2 Saturation ABG Base Excess FiO2 Sodium 128 L Potassium 4.9 Chloride 92 L Carbon Dioxide 31 BUN 23 H Creatinine 0.81 Estimated GFR > 60.0 BUN/Creatinine Ratio 28.4 H Glucose 129 H Hemoglobin A1c Lactate Calcium 9.1 Magnesium 1.8 Total Bilirubin 2.8 H Conjugated Bilirubin Unconjugated Bilirubin AST 94 H ALT 70 H Alkaline Phosphatase 95 Total Creatine Kinase 114 CK-MB (CK-2) 8.24 H CK-MB (CK-2) Rel Index 7.2 H* Troponin I 0.210 H* NT-Pro-B Natriuret Pep 8210 H Total Protein 6.5 Albumin 3.6 Globulin 2.9 Albumin/Globulin Ratio 1.2 Triglycerides Cholesterol LDL Cholesterol, Calc HDL Cholesterol Lipase 140 TSH Free T4 Nasal Screen MRSA (PCR) 10/15/21 10/15/21 10/15/21 17:10 17:10 17:38 WBC RBC Hgb Hct MCV MCH MCHC RDW Plt Count Neut % (Auto) Lymph % (Auto) Pike % (Auto) Eos % (Auto) Baso % (Auto) Neut # (Auto) Lymph # (Auto) Pike # (Auto) Eos # (Auto) Baso # (Auto) PT INR APTT ABG pH 7.36 ABG pCO2 61.4 H* ABG pO2 66 L ABG HCO3 35 H ABG Total CO2 36 H ABG O2 Saturation 91 L ABG Base Excess 9.0 H FiO2 21 Sodium Potassium Chloride Carbon Dioxide BUN Creatinine Estimated GFR BUN/Creatinine Ratio Glucose Hemoglobin A1c 7.1 H Lactate 3.4 H Calcium Magnesium Total Bilirubin Conjugated Bilirubin Unconjugated Bilirubin AST ALT Alkaline Phosphatase Total Creatine Kinase CK-MB (CK-2) CK-MB (CK-2) Rel Index Troponin I NT-Pro-B Natriuret Pep Total Protein Albumin Globulin Albumin/Globulin Ratio Triglycerides Cholesterol LDL Cholesterol, Calc HDL Cholesterol Lipase TSH Free T4 Nasal Screen MRSA (PCR) 10/15/21 10/15/21 10/15/21 19:56 22:28 22:28 WBC RBC Hgb Hct MCV MCH MCHC RDW Plt Count Neut % (Auto) Lymph % (Auto) Pike % (Auto) Eos % (Auto) Baso % (Auto) Neut # (Auto) Lymph # (Auto) Pike # (Auto) Eos # (Auto) Baso # (Auto) PT INR APTT ABG pH ABG pCO2 ABG pO2 ABG HCO3 ABG Total CO2 ABG O2 Saturation ABG Base Excess FiO2 Sodium Potassium Chloride Carbon Dioxide BUN Creatinine Estimated GFR BUN/Creatinine Ratio Glucose Hemoglobin A1c Lactate 1.6 Calcium Magnesium Total Bilirubin Conjugated Bilirubin Unconjugated Bilirubin AST ALT Alkaline Phosphatase Total Creatine Kinase CK-MB (CK-2) CK-MB (CK-2) Rel Index Troponin I 0.361 H* NT-Pro-B Natriuret Pep Total Protein Albumin Globulin Albumin/Globulin Ratio Triglycerides Cholesterol LDL Cholesterol, Calc HDL Cholesterol Lipase TSH 3.45 Free T4 1.81 Nasal Screen MRSA (PCR) 10/16/21 10/16/21 10/16/21 03:30 05:45 05:45 WBC 6.7 RBC 6.44 H Hgb 17.4 H Hct 54.7 H MCV 85.0 MCH 27.0 MCHC 31.8 RDW 17.3 H Plt Count 114 L Neut % (Auto) 71.4 Lymph % (Auto) 12.8 L Pike % (Auto) 14.6 H Eos % (Auto) 0.7 L Baso % (Auto) 0.5 Neut # (Auto) 4800 Lymph # (Auto) 900 L Pike # (Auto) 1000 H Eos # (Auto) 0 Baso # (Auto) 0 PT INR APTT 99 H* D ABG pH ABG pCO2 ABG pO2 ABG HCO3 ABG Total CO2 ABG O2 Saturation ABG Base Excess FiO2 Sodium Potassium Chloride Carbon Dioxide BUN Creatinine Estimated GFR BUN/Creatinine Ratio Glucose Hemoglobin A1c Lactate Calcium Magnesium Total Bilirubin Conjugated Bilirubin Unconjugated Bilirubin AST ALT Alkaline Phosphatase Total Creatine Kinase CK-MB (CK-2) CK-MB (CK-2) Rel Index Troponin I 0.741 H* NT-Pro-B Natriuret Pep Total Protein Albumin Globulin Albumin/Globulin Ratio Triglycerides Cholesterol LDL Cholesterol, Calc HDL Cholesterol Lipase TSH Free T4 Nasal Screen MRSA (PCR) 10/16/21 10/16/21 10/16/21 05:45 05:45 11:40 WBC RBC Hgb Hct MCV MCH MCHC RDW Plt Count Neut % (Auto) Lymph % (Auto) Pike % (Auto) Eos % (Auto) Baso % (Auto) Neut # (Auto) Lymph # (Auto) Pike # (Auto) Eos # (Auto) Baso # (Auto) PT INR APTT 100 H* ABG pH ABG pCO2 ABG pO2 ABG HCO3 ABG Total CO2 ABG O2 Saturation ABG Base Excess FiO2 Sodium 129 L Potassium 4.4 Chloride 91 L Carbon Dioxide 39 H BUN 24 H Creatinine 0.81 Estimated GFR > 60.0 BUN/Creatinine Ratio 29.6 H Glucose 99 Hemoglobin A1c Lactate Calcium 8.2 L Magnesium 1.9 Total Bilirubin 1.6 H Conjugated Bilirubin 0.0 Unconjugated Bilirubin 1.2 H AST 61 H ALT 56 H Alkaline Phosphatase 54 Total Creatine Kinase CK-MB (CK-2) CK-MB (CK-2) Rel Index Troponin I NT-Pro-B Natriuret Pep Total Protein 5.0 L Albumin 2.6 L Globulin 2.4 Albumin/Globulin Ratio 1.1 Triglycerides 88 Cholesterol 100 L LDL Cholesterol, Calc 62 HDL Cholesterol 20 L Lipase TSH Free T4 Nasal Screen MRSA (PCR) Negative for mrsa 10/16/21 10/16/21 11:40 13:51 WBC RBC Hgb Hct MCV MCH MCHC RDW Plt Count Neut % (Auto) Lymph % (Auto) Pike % (Auto) Eos % (Auto) Baso % (Auto) Neut # (Auto) Lymph # (Auto) Pike # (Auto) Eos # (Auto) Baso # (Auto) PT INR APTT ABG pH ABG pCO2 ABG pO2 ABG HCO3 ABG Total CO2 ABG O2 Saturation ABG Base Excess FiO2 Sodium 128 L Potassium 4.0 Chloride 89 L Carbon Dioxide 43 H* BUN 25 H Creatinine 0.82 Estimated GFR > 60.0 BUN/Creatinine Ratio 30.5 H Glucose 101 Hemoglobin A1c Lactate Calcium 8.0 L Magnesium 1.8 Total Bilirubin Conjugated Bilirubin Unconjugated Bilirubin AST ALT Alkaline Phosphatase Total Creatine Kinase 66 CK-MB (CK-2) TNP CK-MB (CK-2) Rel Index TNP Troponin I 0.717 H* NT-Pro-B Natriuret Pep Total Protein Albumin Globulin Albumin/Globulin Ratio Triglycerides Cholesterol LDL Cholesterol, Calc HDL Cholesterol Lipase TSH Free T4 Nasal Screen MRSA (PCR) PFSH Surgical History (Updated 10/16/21 @ 00:49 by JEAN Morales) Hx of hysterectomy Family History (Updated 10/16/21 @ 00:51 by JEAN Morales) Mother COPD (chronic obstructive pulmonary disease) Tobacco dependence due to cigarettes Father COPD (chronic obstructive pulmonary disease) Tobacco dependence due to cigarettes Grandfather Myocardial infarction Grandfather Heart disease Social History household members: spouse Smoking Status: Current every day smoker alcohol intake: current Assessment & Plan Assessment & Plan narrative: 1. Atrial flutter * Continue metoprolol 12.5 q.6 * Start Eliquis 5 mg twice daily * Will discontinue IV heparin 2. Acute hypoxic respiratory failure, secondary to acute systolic heart failure (biventricular), and COPD * Will continue diuresis as her blood pressure will allow * Will start low-dose KINJAL-inhibitor as blood pressure will allow 3. Severe COPD Continue oxygen, inhalers 4.ERythrocytosis-secondary to chronic hypoxia 5. Elevated LFT's-likely passive congestion Plan continue diuresis, continue b-antwan, start eliquis. taper oygen Time Spent With Patient Critical Care time: I spent a total of [] minutes of critical care time on this patient's care today; this time is exclusive of procedural time. Quality VTE Deep Vein Thrombosis/Pulmonary Embolism Present on Admission: No
--- NOTE | 2021-10-16 20:37 | P.ICUMDRN_ITS ---
- :: This patient was seen in the Intensive Care Unit via real time interactive two- way audiovisual telecommunication. Note: 66 yo Woman with COPD, CHF, AFib/flutter with RVR, and NSTEMI. Rounded on patient with bedside nurse. Patient is currently in Aflutter with HR 70-90's on Metoprolol 12.5 mg q6h (patient never needed Amiodarone). ECHO shows moderate to severe LV and RV dysfunction. LV EF is 30-35%. There is evidence of Pulm HTN and elevated R aterial pressures. Chest CTA neg for PE. Repeat labs this afternoon showed HCO3 increased to 43. K is 4.0 and MG was 1.8 I(patient got 2 gm of mag). Pt's pox was in low 90's at rest and in mid to high 80's during talking on 3L nc. Increased patinet's oxygen to 4L nc and pox improved to low 90's. Plan -given HCO3 of 43, will stop Lasix and diurese with Diamox tonight instead (250 mg PO x1) -give KCL 20 mgEq -plan is for patient to transition from heparin drip tp Eliquis. -if Pox <90 on talking or exertion despite nc 5L, consider witching patient to HFNC 50L 50% and titrate FIO2 for pox of 90-95% (pt. is CO2 retainer) CCT spent 35 min
[2021-10-16] MEDS: ATORVASTATIN 20 MG TABLET 40 MG PO (20:53)
[2021-10-16] MEDS: APIXABAN 5 MG TABLET PO (20:53)
[2021-10-16] MEDS: POTASSIUM CHLORIDE 20 MEQ TAB PO (20:54)
[2021-10-16] MEDS: acetaZOLAMIDE 250 MG TABLET PO (21:21)
[2021-10-17] VITALS (43 sets, daily range): BP systolic 90–119; BP diastolic 51–73; PULSE 72–144; RESP 14–33; TEMP 36.6–37.3; O2SAT 88–97
[2021-10-17 06:25] LABS: Add Manual Diff / Slide Review NO; Basophils Absolute Auto 0 /uL (0-100); Basophils Percent Auto 0.5 % (0-2); Eosinophils Absolute Auto 0 /uL (0-450); Eosinophils Percent Auto 0.5 % (2-4); Hematocrit 52.6 % (36-46); Hemoglobin 16.6 g/dL (12.0-16.0); Lymphocytes Absolute Auto 700 /uL (1100-4500); Mean Corpuscular HGB Conc 31.6 % (30-36); Mean Corpuscular Hemoglobin 26.9 PG (26-34); Mean Corpuscular Volume 85.1 fL (80-100); Monocytes Absolute Auto 800 /uL (0-900); Monocytes Percent Auto 13.1 % (3-14); Neutrophils Absolute Auto 4500 /uL (1500-7000); Neutrophils Percent Auto 74.9 % (50-75); Platelet Count 106 X10^3/uL (150-400); Red Blood Cell Count 6.18 X10^6/uL (4.0-5.2); Red Cell Distribution Width 17.3 % (11.6-14.8); White Blood Cell Count 5.9 X10^3/uL (4.5-11.0)
[2021-10-17 06:34] LABS: Alanine Aminotransferase 47 IU/L (<35); Albumin 2.5 g/dL (3.5-5.0); Albumin Globulin Ratio 1.1 (1.0-2.8); Alkaline Phosphatase 45 U/L (38-126); Aspartate Aminotransferase 45 IU/L (14-36); BUN Creatinine Ratio 23.7 (6-22); Bilirubin Total 1.4 mg/dL (0.2-1.3); Blood Urea Nitrogen 22 mg/dL (7-17); Calcium 7.7 mg/dL (8.4-10.2); Carbon Dioxide 38 mmol/L (22-32); Chloride 91 mmol/L (98-107); Globulin 2.2 g/dL (1.7-4.1); Glucose 84 mg/dL (80-110); HEMOLYSIS 20 (0-50); Magnesium 2.1 mg/dL (1.6-2.3); Sodium 127 mmol/L (137-145); Total Protein 4.7 g/dL (6.3-8.2)
[2021-10-17] MEDS: METOPROLOL IR 25 MG TABLET 12.5 MG PO ×4 (09:20→20:53)
[2021-10-17] MEDS: ASPIRIN EC 81 MG TABLET PO (09:29)
[2021-10-17] MEDS: NICOTINE 14 PATCH 14 MG TOP (09:29)
[2021-10-17] MEDS: APIXABAN 5 MG TABLET PO ×2 (09:29→20:53)
[2021-10-17] MEDS: FUROSEMIDE 40 MG/4 ML VIAL IV (09:30)
--- NOTE | 2021-10-17 15:11 | CM.DPC ---
DCP Cont: Discussed patient during team rounds. Patient is in a-flutter, COPD exacerbation. She is not medically ready for discharge, and is currently on oxygen. P: DCP to continue to follow for any needs. Plan is home when she is deemed medically stable, but uncertain if patient will need home oxygen. Tiffanie Gonzalez RN/Drawer Maker
--- NOTE | 2021-10-17 16:12 | P.PN_ITS ---
Subjective Subjective Date Patient Seen: 10/17/21 Interval history: Patient is a 66-year-old female admitted to the hospital with biventricular heart failure, atrial flutter, severe COPD, passive congestion of her liver, initially with elevated troponins. Patient has no chest pain. Her breathing has improved. Her urine output is improved with a net-3 L. heart rate is well controlled on low-dose metoprolol, she has been transition from IV heparin to Eliquis. Patient does remain hypoxic requiring oxygen. Exam Vital Signs (past 8 hours): - 10/17/21 11:45 Temperature 98.2 F Pulse Rate 92 H Respiratory Rate 23 Blood Pressure 112/68 Pulse Oximetry 93 Oxygen Delivery Method Nasal Cannula Oxygen Flow Rate 2 Narrative Exam Narrative: Pleasant female lying in bed in no obvious distress Resp Other: Lungs bilateral crackles noted, end-expiratory wheezing. Cardio Other: Patient is tachycardic with a regular irregularly rhythm GI Other: Abdomen soft nontender nondistended Extrem Other: Extremity with 2+ edema Objective Labs Result Diagrams: 10/17/21 05:48 10/17/21 05:48 Labs: Laboratory Results - last 24 hr 10/17/21 10/17/21 05:48 05:48 WBC 5.9 RBC 6.18 H Hgb 16.6 H Hct 52.6 H MCV 85.1 MCH 26.9 MCHC 31.6 RDW 17.3 H Plt Count 106 L Neut % (Auto) 74.9 Lymph % (Auto) 11.0 L Weber % (Auto) 13.1 Eos % (Auto) 0.5 L Baso % (Auto) 0.5 Neut # (Auto) 4500 Lymph # (Auto) 700 L Weber # (Auto) 800 Eos # (Auto) 0 Baso # (Auto) 0 Sodium 127 L Potassium 4.0 Chloride 91 L Carbon Dioxide 38 H BUN 22 H Creatinine 0.93 Estimated GFR 60.0 BUN/Creatinine Ratio 23.7 H Glucose 84 Calcium 7.7 L Magnesium 2.1 Total Bilirubin 1.4 H Conjugated Bilirubin 0.0 Unconjugated Bilirubin 1.0 AST 45 H ALT 47 H Alkaline Phosphatase 45 Total Protein 4.7 L Albumin 2.5 L Globulin 2.2 Albumin/Globulin Ratio 1.1 PFSH Surgical History (Updated 10/16/21 @ 00:49 by JEAN Morales) Hx of hysterectomy Family History (Updated 10/16/21 @ 00:51 by JEAN Morales) Mother COPD (chronic obstructive pulmonary disease) Tobacco dependence due to cigarettes Father COPD (chronic obstructive pulmonary disease) Tobacco dependence due to cigarettes Grandfather Myocardial infarction Grandfather Heart disease Social History household members: spouse Smoking Status: Current every day smoker alcohol intake: current Assessment & Plan Assessment & Plan narrative: ?Atrial fibrillation w/RVR, acute and present on admission * She is initiated on a low dose esmolol drip * If blood pressure unable to tolerate esmolol drip, change to amiodarone bolus and drip recommended by [facility] * TSH/Free T4 w/in normal limits. * Asthma low drip discontinued, patient now maintained on low-dose beta-antwan. Heart rate well controlled she is now transition to Eliquis 2. New diagnosis of probable congestive heart failure exhibiting as volume overload, acute, present on admission * Echocardiogram in the morning to determine severity and type of CHF, biventricular heart failure, ejection fraction 30-35% patient has global hypokinesis of the left ventricle, right ventricle is severely dilated no wall motion abnormalities noted * IV Lasix q.12 hours w/1L/day goal * Strict I&Os q 8 hours * She was ordered for magnesium by the [facility] 3. NSTEMI vs demand ischemia,, patient most likely with type 2 myocardial infarction, no evidence of an acute NSTEMI * She was initiated on heparin drip in the emergency department per Cardiology recommendation, IV heparin discontinued, patient now on Eliquis * Start low-dose aspirin in the morning * 4. New diagnosis of diabetes type 2 * She will need diabetic education * Carb controlled diet * Low dose insulin correctional scale 5. History of COPD. * Chronic Resp Acidosis on ABG noted. Elevated Hgb and CO2 * Continue NC if needed, O2 sat goal is 87-93% * PRN Nebs, albuterol and duoneb * Smoking cessation education. 14 mcg Nicotine patch to be offered. * Patient may require home oxygen, will obtain an O2 evaluation at discharge 6. Elevated LFTs, unknown if acute * have ordered an acute hepatitis panel * Possible abdominal ascites, may need abdominal ultrasound * Patient with LFT elevation due to passive congestion of the liver from severe congestive heart failure, no further workup indicate 7. Diarrhea, present for 2 weeks * She has been ordered for stool cultures and Clostridium difficile, C diff neck * 8. Disposition home once the patient has completed her diuresis 9. Hyponatremia will start fluid restriction Time Spent With Patient Critical Care time: I spent a total of [] minutes of critical care time on this patient's care today; this time is exclusive of procedural time. Quality VTE Deep Vein Thrombosis/Pulmonary Embolism Present on Admission: No
--- NOTE | 2021-10-17 19:21 | PC.NURSE ---
Pt continues to improve, HR improved to 70's aflutter, tolerating metoprolol PO. Given 0900 dose (total 25mg) and noon dose given late d/t clarification with Dr Zhang. BP 100/60's at that time. BP stable throughout afternoon, no c/o lightheadedness or dizziness. SBA to BSC. Lasix given with good effect, voiding 800+ mls of clear yellow urine x3. SOb improved. 1-3L NC for Spo2 >88 Using call light for needs, no SS insulin needed.
[2021-10-17] MEDS: ATORVASTATIN 20 MG TABLET 40 MG PO (20:53)
[2021-10-18] VITALS (13 sets, daily range): BP systolic 87–111; BP diastolic 55–77; PULSE 54–98; RESP 15–29; TEMP 36.2–37.4; O2SAT 91–97
[2021-10-18] MEDS: FUROSEMIDE 40 MG/4 ML VIAL IV ×2 (01:07→12:18)
[2021-10-18] MEDS: METOPROLOL IR 25 MG TABLET 12.5 MG PO ×3 (05:35→23:36)
[2021-10-18 06:37] LABS: BUN Creatinine Ratio 27.2 (6-22); Blood Urea Nitrogen 22 mg/dL (7-17); Calcium 7.7 mg/dL (8.4-10.2); Chloride 89 mmol/L (98-107); Estimated Glomerular Filt Rate > 60.0 mL/min (>60); Glucose 87 mg/dL (80-110); HEMOLYSIS 27 (0-50); Potassium 3.3 mmol/L (3.4-5.1); Sodium 130 mmol/L (137-145)
[2021-10-18 06:45] LABS: Carbon Dioxide 41 mmol/L (22-32)
[2021-10-18 06:49] LABS: Magnesium 1.8 mg/dL (1.6-2.3)
[2021-10-18] MEDS: NICOTINE 14 PATCH 14 MG TOP (09:23)
[2021-10-18] MEDS: APIXABAN 5 MG TABLET PO ×2 (09:23→20:43)
[2021-10-18] MEDS: ASPIRIN EC 81 MG TABLET PO (09:23)
[2021-10-18] MEDS: POTASSIUM CHLORIDE 20 MEQ TAB 40 MEQ PO (09:29)
--- NOTE | 2021-10-18 18:02 | P.PN_ITS ---
Subjective Subjective Date Patient Seen: 10/18/21 Interval history: The patient is a 66-year-old female admitted to the hospital with acute hypoxic respiratory failure, secondary to COPD, probable biventricular heart failure. She continues to diurese, despite excellent diuresis the patient continues to be hypoxic. Suspect she will need home oxygen. She has no chest pain. She remains in atrial flutter but her rate is well controlled. Exam Vital Signs (past 8 hours): - 10/18/21 12:00 10/18/21 16:44 10/18/21 17:22 Temperature 98.1 F Pulse Rate 98 H 96 H 91 H Respiratory Rate 18 29 H 19 Blood Pressure 87/55 L 91/67 Pulse Oximetry 93 94 92 Oxygen Delivery Method Nasal Cannula Oxygen Flow Rate 2 Narrative Exam Narrative: Elderly female lying in bed in no obvious distress Resp Other: Lungs decreased breath sounds Cardio Other: Cardiac exam: Irregularly irregular normal S1-S2 with a 2/6 systolic ejection murmur GI Other: Abdomen soft nontender nondistended Extrem Other: Extremity 2+ pitting edema up to the thigh Objective Labs Result Diagrams: 10/17/21 05:48 10/18/21 06:17 Labs: Laboratory Results - last 24 hr 10/18/21 10/18/21 06:17 06:17 Sodium 130 L Potassium 3.3 L Chloride 89 L Carbon Dioxide 41 H* BUN 22 H Creatinine 0.81 Estimated GFR > 60.0 BUN/Creatinine Ratio 27.2 H Glucose 87 Calcium 7.7 L Magnesium 1.8 PFSH Surgical History (Updated 10/16/21 @ 00:49 by JEAN Morales) Hx of hysterectomy Family History (Updated 10/16/21 @ 00:51 by JEAN Morales) Mother COPD (chronic obstructive pulmonary disease) Tobacco dependence due to cigarettes Father COPD (chronic obstructive pulmonary disease) Tobacco dependence due to cigarettes Grandfather Myocardial infarction Grandfather Heart disease Social History household members: spouse Smoking Status: Current every day smoker alcohol intake: current Assessment & Plan Assessment & Plan narrative: Atrial Flutter w/RVR, acute and present on admission * Continue metoprolol 12.5 q 6 hours as blood pressure tolerates, continue apixaban * Esmolol drip discontinued, patient now maintained on low-dose beta-antwan.? Heart rate well controlled she is now transition to Eliquis2. New diagnosis of probable congestive heart failure exhibiting as volume overload, acute, present on admission * CHF, biventricular heart failure, ejection fraction 30-35% patient has global hypokinesis of the left ventricle, right ventricle is severely dilated no wall motion abnormalities noted * IV Lasix q.12 hours w/1L/day goal * Strict I&Os q 8 hours * She was ordered for magnesium by the intensivist3. NSTEMI vs demand ischemia,, patient most likely with type 2 myocardial infarction, no evidence of an acute NSTEMI * She was initiated on heparin drip in the emergency department per Cardiology recommendation, IV heparin discontinued, patient now on Eliquis * Start low-dose aspirin in the morning * 4. New diagnosis of diabetes type 2 * She will need diabetic education * Carb controlled diet * Low dose insulin correctional scale5. History of COPD. Will obtain home O2 eval * Chronic Resp Acidosis on ABG noted. Elevated Hgb and CO2 * Continue NC if needed, O2 sat goal is 87-93% * PRN Nebs, albuterol and duoneb * Smoking cessation education. 14 mcg Nicotine patch to be offered. * Elevated LFTs suspect a passive congestive hepatopathy * . Diarrhea, present for 2 weeks * She has been ordered for stool cultures and Clostridium difficile, Time Spent With Patient Critical Care time: I spent a total of [] minutes of critical care time on this patient's care today; this time is exclusive of procedural time. Quality VTE Deep Vein Thrombosis/Pulmonary Embolism Present on Admission: No
--- NOTE | 2021-10-18 18:12 | PC.NURSE ---
pt doing well- transferred to room 207 after being placed on tele rather than hardwire- she continues to have 2+ firmly pitting edema bilat lower extremities- slight sob with activity and remains hypoxic- atrial flutter is rate controlled and she remains hypotensive - using bsc or br for freq voids-report given to MADELIN
--- NOTE | 2021-10-18 19:07 | PC.NURSE ---
PT recieved from ICU at 1700. She is A&OX3, pleasant VSS, afebrile on 3 LNC. She denies SOB, no wheezing or cough noted. LS diminished bases. +2-3 edema BLE. She denies pain. BP slightly hypotensive and evening metoprolol held. no c/o of dizziness, asymptomatic. Tolerating dinner well BG 103. Continuous monitoring.
[2021-10-18] MEDS: ATORVASTATIN 20 MG TABLET 40 MG PO (20:43)
[2021-10-18] MEDS: SODIUM CHLORIDE 0.9% FLUSH 10 ML IV (21:09)
[2021-10-19] VITALS (10 sets, daily range): BP systolic 95–131; BP diastolic 51–89; PULSE 53–98; RESP 16–20; TEMP 36.6–36.8; O2SAT 88–97
[2021-10-19 05:25] LABS: HEMOLYSIS < 15 (0-50); Potassium 3.2 mmol/L (3.4-5.1)
--- NOTE | 2021-10-19 06:29 | PC.NURSE ---
Hold 12.5 mg. of Metoprolol B/P 95/51, HR 71. Denies any pain, sleepy this morning did not sleep well last night. Will monitor.
[2021-10-19] MEDS: SODIUM CHLORIDE 0.9% FLUSH 10 ML IV ×2 (09:10→21:50)
[2021-10-19] MEDS: NICOTINE 14 PATCH 14 MG TOP (09:10)
[2021-10-19] MEDS: APIXABAN 5 MG TABLET PO ×2 (09:10→21:49)
[2021-10-19] MEDS: ASPIRIN EC 81 MG TABLET PO (09:10)
[2021-10-19] MEDS: FUROSEMIDE 40 MG/4 ML VIAL IV ×3 (09:26→21:50)
[2021-10-19] MEDS: METOPROLOL IR 25 MG TABLET 12.5 MG PO ×2 (11:00→17:39)
[2021-10-19] MEDS: POTASSIUM CHLORIDE 20 MEQ TAB 40 MEQ PO (11:06)
[2021-10-19 11:51] LABS: BUN Creatinine Ratio 30.7 (6-22); Blood Urea Nitrogen 23 mg/dL (7-17); Calcium 8.2 mg/dL (8.4-10.2); Chloride 89 mmol/L (98-107); Estimated Glomerular Filt Rate > 60.0 mL/min (>60); Glucose 116 mg/dL (80-110); Potassium 3.6 mmol/L (3.4-5.1); Sodium 135 mmol/L (137-145)
[2021-10-19 11:59] LABS: HEMOLYSIS 30 (0-50)
[2021-10-19 12:00] LABS: NT-proBNP (BNP-Adult 18+) 4880 pg/mL (<125)
[2021-10-19 12:01] LABS: Carbon Dioxide 45 mmol/L (22-32)
--- NOTE | 2021-10-19 15:57 | P.PN_ITS ---
Subjective Subjective Date Patient Seen: 10/19/21 Interval history: The patient is a 66-year-old female admitted to the hospital with multiple issues including COPD, atrial flutter, biventricular heart failure. The patient continues to be diuresed, she has had 5 L out, her blood pressure has limited the amount of beta-antwan she will tolerate. However with low-dose beta- antwan metoprolol, 12.5 twice daily her heart rates been controlled. Will continue to push diuresis as she continues to have lower extremity edema and reports she is still short of breath. Exam Vital Signs (past 8 hours): - 10/19/21 09:41 10/19/21 10:00 10/19/21 11:22 Temperature 97.9 F Pulse Rate 90 Respiratory Rate 17 Blood Pressure 131/78 Pulse Oximetry 95 97 93 10/19/21 11:23 10/19/21 14:08 Temperature 98.0 F Pulse Rate 74 94 H Respiratory Rate 16 16 Blood Pressure 126/89 Pulse Oximetry 92 94 Oxygen Delivery Method Nasal Cannula Oxygen Flow Rate 2 Narrative Exam Narrative: Pleasant female resting comfortably Resp Other: Lungs decreased breath sounds, no crackles rhonchi or wheezes Cardio Other: Cardiac exam: Irregular lead irregular Normal S1-S2 with a 2/6 systolic ejectio n murmur GI Other: Abdomen soft nontender nondistended Extrem Other: 3+ pitting edema to the thighs bilaterally Objective Labs Result Diagrams: 10/17/21 05:48 10/19/21 11:25 Labs: Laboratory Results - last 24 hr 10/19/21 10/19/21 04:33 11:25 Sodium 135 L Potassium 3.2 L 3.6 Chloride 89 L Carbon Dioxide 45 H* BUN 23 H Creatinine 0.75 Estimated GFR > 60.0 BUN/Creatinine Ratio 30.7 H Glucose 116 H Calcium 8.2 L NT-Pro-B Natriuret Pep 4880 [facility] Surgical History (Updated 10/16/21 @ 00:49 by JEAN Morales) Hx of hysterectomy Family History (Updated 10/16/21 @ 00:51 by JEAN Morales) Mother COPD (chronic obstructive pulmonary disease) Tobacco dependence due to cigarettes Father COPD (chronic obstructive pulmonary disease) Tobacco dependence due to cigarettes Grandfather Myocardial infarction Grandfather Heart disease Social History household members: spouse Smoking Status: Current every day smoker alcohol intake: current Assessment & Plan Assessment & Plan narrative: Atrial Flutter w/RVR, acute and present on admission * Continue metoprolol 12.5 q 6 hours as blood pressure tolerates, continue apixaban * Esmolol drip discontinued, patient now maintained on low-dose beta-antwan.? Heart rate well controlled . New diagnosis of congestive heart failure exhibiting as volume overload, acute, present on admission, acute systolic heart failure * ?CHF, biventricular heart failure, ejection fraction 30-35% patient has global hypokinesis of the left ventricle, right ventricle is severely dilated no wall motion abnormalities noted * Will increase Lasix to 40 mg IV q.8 in an attempt to get more fluid off * Strict I&Os q 8 hours * Initiate low-dose KINJAL-inhibitor as blood pressure has improved Type 2 Myocardial Infarction , no evidence of an acute NSTEMI * She was initiated on heparin drip in the emergency department per Cardiology recommendation, IV heparin discontinued, patient now on Eliquis * Continue low-dose metoprolol at 12.5 b.i.d. * Continue statin, baby asa New diagnosis of diabetes type 2 * She will need diabetic education, hgb AIC 7.1 * Carb controlled diet * Low dose insulin correctional scale. Acute hypoxic respiratory failure, suspect the patient will be requiring home oxygen from chronic COPD, present from on admission * Chronic Resp Acidosis on ABG noted. Elevated Hgb and CO2 * Continue NC if needed, O2 sat goal is 87-93% * PRN Nebs, albuterol and duoneb * Smoking cessation education. 14 mcg Nicotine patch to be offered. * Home O2 evaluation at discharge Elevated LFTs -suspect a passive congestive hepatopathy from severe heart failure * . Diarrhea, present for 2 weeks * She has been ordered for stool cultures and Clostridium difficile, Patient likely will require 1-2 to discharge home additional hospital days for continued diuresis, Patient likely will need oxygen at discharge as well Time Spent With Patient Critical Care time: I spent a total of [] minutes of critical care time on this patient's care today; this time is exclusive of procedural time. Quality VTE Deep Vein Thrombosis/Pulmonary Embolism Present on Admission: No
[2021-10-19] MEDS: INSULIN LISPRO 100 UNIT/ML 3ML VIAL SUBCUT (17:35)
[2021-10-19] MEDS: ATORVASTATIN 20 MG TABLET 40 MG PO (21:49)
[2021-10-20] MEDS: METOPROLOL IR 25 MG TABLET 12.5 MG PO ×3 (00:14→13:10)
[2021-10-20 00:24] VITALS: BP 105/67; PULSE 100; RESP 20; TEMP 36.6; O2SAT 95
[2021-10-20 05:00] VITALS: BP 115/75; PULSE 97; RESP 20; TEMP 36.3; O2SAT 92
[2021-10-20] MEDS: SODIUM CHLORIDE 0.9% FLUSH 10 ML IV ×2 (06:04→09:43)
[2021-10-20] MEDS: FUROSEMIDE 40 MG/4 ML VIAL IV (06:04)
[2021-10-20 08:19] VITALS: O2SAT 93
[2021-10-20 08:38] VITALS: BP 105/76; PULSE 86; RESP 15; TEMP 36.1; O2SAT 95
[2021-10-20 09:42] VITALS: BP 105/76; PULSE 86
[2021-10-20 09:42] LABS: Clostridium Difficile Tox PCR Negative for C. diff (Negative)
[2021-10-20] MEDS: APIXABAN 5 MG TABLET PO (09:42)
[2021-10-20] MEDS: ASPIRIN EC 81 MG TABLET PO (09:42)
[2021-10-20] MEDS: lisinopriL 5 MG TABLET PO (09:42)
[2021-10-20] MEDS: NICOTINE 14 PATCH 14 MG TOP (09:43)
[2021-10-20 12:00] VITALS: BP 106/65; PULSE 98; RESP 16; TEMP 36.7; O2SAT 96
[2021-10-20] MEDS: POTASSIUM CHLORIDE 20 MEQ TAB PO (13:10)
--- NOTE | 2021-10-20 14:22 | CM.MNRNOTE ---
Pt A&O pleasant, VSS, afebrile. Weight decreasing with a.m. weight this a.m. Edema +2-3 to feet and ankles up to calfs. She is ambulating with steady gait in room, she denies SOB or pain, or dizziness this a.m. No wheezing observed or reported.She remains in A flutter on telemetry occasionally with BBB. Pt given scheduled medications per OCT. MD at bedside this afternoon clearing patient for discharge home with home 02. RT Aryan educating patient on home 02 and providing 02 tank. She is given education about CHF, blood pressure, new medications, measuring 02 sats with pulse oximeter and measuring blood pressure with home machine.She is also given education about measuring her weight daily and reporting to her provider with a weight gain of 3lbs in 24 hours or 5# in one week. She aggrees to diet control and fluid control at home. She verbalizes understanding and acknowledgement and will call her PCP to make a follow up appointment within the week. She denies further questions. SKULL SPLITTER escorted via wheelchair with all of her belongings and 02 tank with for discharge in private vehicle to home.
--- NOTE | 2021-10-20 17:41 | P.DS_ITS ---
History of Present Illness History of Present Illness Chief complaint: Atrial flutter with Narrative: 66-year-old long-term smoker with COPD but no previous cardiac history who presented to urgent care yesterday with a 2 month history of progressive fatigue, dyspnea, and mild lightheadedness but without any perception palpitations or chest discomfort.? She had noted worsening pedal edema and abdominal distention for the week prior to admission with 3 to 4 weeks of loose stools.? At urgent care, she was found to be in atrial flutter at 150 ppm with a resting oxygen saturation of 83% was sent to the emergency department where her initial blood pressure was 185/114. 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 Atrial flutter with RVR 2. Acute systolic heart failurelikely secondary to atrial flutter 3. Biventricular heart failure 4. Type 2 myocardial infarction 5. New diagnosis type 2 diabetes, diet controlled 6. Acute on chronic hypoxic respiratory failure 7. Acute transaminitis secondary to congestive hepatopathy Atrial Flutter w/RVR, acute and present on admission * Improved rate control on beta-antwan Discharge on metoprolol ER 25 mg b.i.d. and apixaban [address] Christian Britton saw patient for Cardiology consult New diagnosis of?congestive heart failure exhibiting as volume overload, acute, present on admission, acute systolic heart failure * ?CHF, biventricular heart failure, ejection fraction 30-35% patient has global hypokinesis of the left ventricle, right ventricle is severely dilated no wall motion abnormalities noted * Diuresed with IV Lasix with net -9.6 L fluid balance * Discharge on torsemide 20 mg q.a.m. with added potassium * KINJAL-inhibitor not continued due to low blood pressures * Instructed needs electrolytes and renal function checked within 1 week Type 2 Myocardial Infarction * Demand related ischemia due to atrial flutter and heart failure New diagnosis of diabetes type 2 * She received diabetic education, hgb AIC 7.1 * Carb controlled diet Acute on chronic hypoxic respiratory failure, suspect the patient will be requir ing home oxygen from chronic COPD, present from on admission * Chronic Resp Acidosis on ABG noted. Elevated Hgb and CO2 * Continue NC , O2 sat goal is 87-93% * Smoking cessation education. 14 mcg Nicotine patch to be offered. * Home O2 evaluation, discharged on 3 L O2 NC Elevated LFTs -suspect a passive congestive hepatopathy from severe heart failure Smoking cessation strongly advised Patient needs to establish with PCP as well as outpatient Cardiology. Status at Discharge Overall status at discharge: patient is progressing back to baseline Time Spent with Patient Time spent: Greater than 30 minutes Exam Vital Signs (past 8 hours): - 10/20/21 09:42 10/20/21 12:00 Temperature 98.0 F Pulse Rate 86 98 H Respiratory Rate 16 Blood Pressure 105/76 106/65 Pulse Oximetry 96 Oxygen Delivery Method Nasal Cannula Oxygen Flow Rate 1 Objective Labs Result Diagrams: 10/17/21 05:48 10/19/21 11:25 Labs: Laboratory Results - last 24 hr 10/18/21 18:11 C. difficile Tox (PCR) Negative for c. diff PFSH Surgical History (Updated 10/16/21 @ 00:49 by JEAN Morales) Hx of hysterectomy Family History (Updated 10/16/21 @ 00:51 by JEAN Morales) Mother COPD (chronic obstructive pulmonary disease) Tobacco dependence due to cigarettes Father COPD (chronic obstructive pulmonary disease) Tobacco dependence due to cigarettes Grandfather Myocardial infarction Grandfather Heart disease Social History household members: spouse Smoking Status: Current every day smoker alcohol intake: current Discharge Plan Discharge Plan Patient Disposition: Home Provider Discharge Comment: You were evaluated for atrial flutter, pulmonary hypertension due to COPD, and right and left heart failure. Additionally we diagnosed diabetes which can be diet controlled. I am discharging you on diuretic, potassium, blood thinner, and beta antwan. Follow up with provider next week. Ideally you can be seen in cardiology clinic next week. You mentioned establishing primary care with Dr Tamara Salgado at the [facility]. You must see a provider within 1 week of discharge to monitor medications and blood work to check electrolytes and kidney function. Use home O2 as directed. Finally, you must quit smoking. Use nicotine patch to aid with smoking cessation. Nursing Discharge Comment: oral kcl ordered prior to discharge Discharge orders & Medications Prescriptions: New Eliquis 5 mg Tablet 5 mg PO BID Qty: 60 0RF torsemide 20 mg tablet 20 mg PO DAILY 30 Days Qty: 30 0RF metoprolol succinate 25 mg tablet extended release 24 hr 25 mg PO BID 30 Days Qty: 60 0RF potassium chloride 20 mEq tablet extended release 20 meq PO DAILY 30 Days Qty: 30 0RF Continued famotidine [Pepcid] 20 mg Tablet 20 mg PO DAILY PRN (Reason: Indigestion) 0RF Follow up/Referrals: Doctor Tubbs MD [Primary Care Provider] - Lars Britton MD [Physician] - Tamara Salgado MD [Physician] - Diet/Activity/Treatments Diet: Carb-consistent/Diabetic Diet comment: avoid sugars, starchy food, fruits and vegetables are okay Visit Report/Discharge Packet Instructions: How to Take Care of Your Feet If You Have Diabetes, Blood Pressure Testing and Measurement, DI for Heart Failure, What to Eat if You Have Diabetes Discharge Data Primary Care Provider: Doctor Suly Quality VTE Deep Vein Thrombosis/Pulmonary Embolism Present on Admission: No
== END 2021-10-20 14:25 | disposition home or self-care (01) | DRG 280 ==
LOC: ED 19:27 → AC 19:32 → ICU 10-16 08:08 → AC 10-18 16:43
PROVIDERS: Internal Medicine; Admitting Provider Nurse Practitioner Family; Emergency Provider Emergency Medicine; Referring Provider Emergency Medicine; Visit Provider Nurse Practitioner Family
DX: I48.92 Unspecified atrial flutter (principal); I50.21 Acute systolic (congestive) heart failure; I21.A1 Myocardial infarction type 2; J96.21 Acute and chronic respiratory failure with hypoxia; E87.2 Acidosis; E87.1 Hypo-osmolality and hyponatremia; I48.91 Unspecified atrial fibrillation; I27.81 Cor pulmonale (chronic); J44.9 Chronic obstructive pulmonary disease, unspecified; D75.1 Secondary polycythemia; R19.7 Diarrhea, unspecified; F17.210 Nicotine dependence, cigarettes, uncomplicated; Z20.822 Contact with and (suspected) exposure to COVID-19
CPT/HCPCS: 36415; 36600; 71045; 71275; 80048; 80053; 80061; 80076; 81003; 82550; 82553; 82805; 82962; 83036; 83605; 83690; 83735; 83880; 84132; 84439; 84443; 84484; 85025; 85610; 85730; 87040; 87045; 87493; 87635; 87797; 87899; 93005; 93306; 94618; 94760; 94762; 96365; 96366; 96368; 96375; 99285; 99291; 99406; C9803; J0282; J1644; J1815; J1940; J3475; Q9967

== ENCOUNTER → 2022-02-23 09:13 | Outpatient (CLI) | payer MEDICARE, OTHER, SELFPAY ==
[2021-10-15 20:06] VITALS: BMI 34.3
--- NOTE | 2022-02-23 09:17 | DI.NM.S_ITS ---
PROCEDURE: NM NICK PERF SPECT R&S PHARM Rest and pharmacological stress myocardial perfusion SPECT with gated imaging and ejection fraction RADIOPHARMACEUTICAL: 12.3 mCi Tc-99m tetrafosmin IV at rest and 25.5 mCi Tc-99m tetrafosmin IV at peak effect of pharmacological stress. Smu-umj-biymqcic was performed. INDICATIONS: CHF TECHNIQUE: Radiopharmaceutical was injected at peak stress test, and also at rest. SPECT images were obtained. SPECT myocardial perfusion images were displayed in short axis, horizontal long axis, and vertical long axis views. Gated images were reviewed using M2TECH software. COMPARISON: None. CARDIAC STRESS: A pharmacologic stress test was performed under the supervision of an attending staff, using an infusion of Regadenoson. Hemodynamic data: There is normal blood pressure and heart rate response to pharmacologic stress. Symptoms: The patient denied anginal chest pain. EKG: No diagnostic changes of ischemia; no ectopy. FINDINGS: Raw data: There is good myocardial uptake of radiotracer. No significant motion artifacts. Ymre-aq-ynijz ratio is 0.33 (normal is less than 0.38 for tetrafosmin tracer). Left ventricle function: Gated images demonstrate normal left ventricular wall thickening. No segmental wall motion abnormalities. No transient ischemic dilation; TID is 0.83 (normal less than 1.3). Left ventricle resting end diastolic volume is 86 mL. Left ventricle stress ejection fraction is 74%; normal range is above 45%. Myocardial perfusion: There is normal distribution of activity in the right and left ventricular myocardium. No fixed or reversible perfusion defects. IMPRESSION: No evidence of pharmacologic induced ischemia or scar. Normal wall motion with near hyperdynamic left ventricle. Dictated by: Casandra Perez D.O. on 02/23/2022 at 16:26 Approved by: Casandra Perez D.O. on 02/23/2022 at 16:29
[2022-02-23 10:12] LABS: COVID19 -Nasal RAPID Negative (Negative)
--- NOTE | 2022-02-23 10:25 | DI.ECHO.S_ITS ---
The ejection fraction is estimated to be 50-55%. Distolic function cannot be assessed 'atrial flutter'. The right ventricle is mildly dilated. The right ventricular systolic function is normal. The right atrium is moderately dilated. There is moderate tricuspid regurgitation. The right ventricular systolic pressure is estimated to be at least 28 mmHg based on an estimated right atrial pressure of 3 mm Hg. Compared to the prior study dated 10/16/2021, the biventricular function has increased and the severity of tricuspid regurgitation has decreased. Procedure: A two-dimensional transthoracic echocardiogram with color flow and Doppler was performed. The study quality was technically adequate. Comparison is made with the echocardiogram of 10/16/2021. The patient was in atrial flutter with heart rates between 70-76 bpm during the exam. Left Ventricle: The left ventricle is normal in size and wall thickness. The ejection fraction is estimated to be 50-55%. Distolic function cannot be assessed 'atrial flutter'. Right Ventricle: The right ventricle is mildly dilated. The right ventricular systolic function is normal. Atria: The left atrial size is normal. The right atrium is moderately dilated. There is no Doppler evidence for an interatrial shunt. Mitral Valve: There is mild mitral annular calcification. The mitral valve leaflets appear mildly thickened, but open well. There is trace mitral regurgitation. Aortic Valve: The aortic valve is trileaflet. The aortic valve opens well. There is no aortic valve stenosis. No aortic regurgitation is present. Tricuspid Valve: The tricuspid valve leaflets are thin and pliable. There is moderate tricuspid regurgitation. The right ventricular systolic pressure is estimated to be at least 28 mmHg based on an estimated right atrial pressure of 3 mm Hg. Pulmonic Valve: The pulmonic valve leaflets are thin and pliable; valve motion is normal. There is no pulmonic valvular regurgitation. Great Vessels: The aortic root is normal size. The ascending aorta could not be visualized. The IVC is of normal diameter and collapses greater than 50% with a sniff. This suggests a low right atrial pressure of 3 mm Hg. Pericardium/ Pleura There is no pericardial effusion. There is no pleural effusion. MMode/2D Measurements & Calculations LVIDd: 3.9 cm LVOT diam: 2.1 cm LVIDs: 2.9 cm Ao root diam: 3.0 cm FS: 24.6 % Ao Arch Diam (Prox Trans): 2.4 cm EPSS: 1.3 cm IVSd: 0.99 cm LVPWd: 0.97 cm LV sandoval. diameter/BSA (cm/m^2): 2.4 LV sys. diameter/BSA (cm/m^2): 1.8 LA A2 area: 18.4 cm2 RA long axis: 5.0 cm LA A4 area: 17.6 cm2 RA area: 19.2 cm2 LA length (vol): 5.4 cm RA vol: 63.2 ml LA vol: 50.9 ml RA : 39.4 ml/m2 LA vol index: 31.7 ml/m2 IVC diam: 0.94 cm RVD1 (basal): 3.8 cm RVD2 (mid): 3.1 cm TAPSE: 1.6 cm Doppler Measurements & Calculations Ao V2 max: 122.8 cm/sec LVOT Max Ji: 97.2 cm/sec Ao V2 mean: 84.4 cm/sec LV V1 max P.8 mmHg Ao max P.0 mmHg LV V1 VTI: 17.6 cm Ao mean P.3 mmHg JESSICA(I,D): 2.7 cm2 Ao V2 VTI: 22.9 cm JESSICA(V,D): 2.7 cm2 sev ratio: 0.77 JESSICA indexed to BSA (cm^2/m^2): 1.7 MV E max ji: 76.4 cm/sec TR max ji: 249.1 cm/sec MV A max ji: 2.1 cm/sec TR max P.8 mmHg MV E/A: 36.4 PA V2 max: 77.2 cm/sec Med Peak E' Ji: 5.5 cm/sec PA V2 mean: 52.1 cm/sec E/E' med: 13.9 PA mean P.2 mmHg Lat Peak E' Ji: 10.9 cm/sec PA pr(Accel): 41.3 mmHg E/E' lat: 7.0 E/e' average: 10.4 MV dec time: 0.17 sec SV(LVOT): 61.0 ml Reading Physician:12:26 PM
== END ==
PROVIDERS: Referring Provider Internal Medicine Cardiovascular Disease; Visit Provider Internal Medicine Cardiovascular Disease
DX: I07.1 Rheumatic tricuspid insufficiency (principal); I50.20 Unspecified systolic (congestive) heart failure; I25.10 Atherosclerotic heart disease of native coronary artery without angina pectoris; Z20.822 Contact with and (suspected) exposure to COVID-19
CPT/HCPCS: 78452; 87635; 93017; 93306; A9502; J2785

== ENCOUNTER → 2024-02-06 13:55 | Outpatient (CLI) | payer MEDICARE, OTHER, SELFPAY ==
[2021-10-15 20:06] VITALS: BMI 34.3
--- NOTE | 2024-02-06 | DI.MG.S_ITS ---
BILATERAL DIGITAL SCREENING MAMMOGRAM 3D/2D WITH CAD: 02/06/2024 CLINICAL: Baseline. Routine screening. Family history of breast cancer. No prior exams were available for comparison. Both breasts are almost entirely fatty (category a/<25% glandular tissue). Current study was also evaluated with a Computer Aided Detection (CAD) system. There is an asymmetry in the right breast anterior depth superior region seen on the mediolateral oblique view only. No other significant masses, calcifications, or other findings are seen in either breast. IMPRESSION: INCOMPLETE: NEEDS ADDITIONAL IMAGING EVALUATION The asymmetry in the right breast is indeterminate. Additional views with possible ultrasound are recommended. Based on the Tyrer Cuzick model (a risk assessment model) the patient's lifetime risk is 5.9% and her 10 year risk is 3.7%. According to the ACR, ACS, and NCCN guidelines, an annual breast MRI exam along with mammogram is recommended if the patient's lifetime risk is 20% or greater. This exam was interpreted at Station ID: [id number]. NOTE: For mammograms, a report in lay terms will be sent to the patient. Approximately 15% of breast malignancies will not be visualized mammographically. In the management of a palpable breast mass, a negative mammogram must not discourage biopsy of a clinically suspicious lesion. Electronically Signed By: Rajesh sanchez/inessa:02/06/2024 15:10:01 letter sent: Additional Imaging Needed ACR BI-RADS Category 0: Incomplete [id number]
== END ==
PROVIDERS: PCP Internal Medicine; Referring Provider Internal Medicine; Visit Provider Internal Medicine
DX: Z12.31 Encounter for screening mammogram for malignant neoplasm of breast (principal); Z80.3 Family history of malignant neoplasm of breast; R92.313 Mammographic fatty tissue density, bilateral breasts
CPT/HCPCS: 77063; 77067

== ENCOUNTER → 2024-02-07 13:57 | Outpatient (CLI) | payer MEDICARE, OTHER, SELFPAY ==
[2021-10-15 20:06] VITALS: BMI 34.3
--- NOTE | 2024-02-07 13:59 | DI.RAD.S_ITS ---
PROCEDURE: XR DEXA AXIAL SKELETON INDICATIONS: POSTMENOPAUSAL STATUS COMPARISON: None. FINDINGS: Lumbar Spine: Bone mineral density 1.005 g/cm2, T score -0.3. Left Hip: Bone mineral density 0.819 g/cm2, T score -1.0. Left Femoral Neck: Bone mineral density 0.656 g/cm2, T score -1.7. Right Hip: Bone mineral density 0.818 g/cm2, T score -1.0. Right Femoral Neck: Bone mineral density 0.749 g/cm2, T score -0.9. Fracture Risk Calculation (when applicable): 10-year fracture risk of a major osteoporotic fracture 13-16% and of a hip fracture 1.3-2.6%. (T score greater or equal to -1.0 to: NORMAL) (T score from -1.1 to -2.4: OSTEOPENIA) (T score less than or equal to -2.5: OSTEOPOROSIS) IMPRESSION: 1. Based on WHO criteria, the patient osteopenia and increased risk for osteoporotic fractures. Follow-up guidelines as follows: Osteoporosis: Consider a repeat DEXA and Vertebral Fracture Assessment (VFA) exam in 2 years or sooner if medically necessary, to reassess this patient's status. Osteopenia: Consider a repeat DEXA in 2-3 years to reassess this patient's status, or if there is a new clinical indication. Normal: Consider a repeat DEXA in 5 years or sooner, or if there is a new clinical indication. All treatment decisions require clinical judgment and consideration of individual patient factors, including patient preferences, comorbidities, previous drug use, risk factors not captured in the FRAX model (e.g., frailty, falls, vitamin D deficiency, increased bone turnover, interval significant decline in bone density ) and possible under- or over-estimation of fracture risk by FRAX. In addition, the NOF Guide recommends that FDA-approved medical therapies be considered in postmenopausal women and men age >= 50 years with a: * Hip or vertebral (clinical or morphometric) fracture * T-score of <=-2.5 at the spine or hip * Ten-year fracture probability by FRAX of >= 3% for hip fracture or >=20% for major osteoporotic fracture. People with diagnosed cases of osteoporosis or at high risk for fracture should have regular bone mineral density tests. For patients eligible for Medicare, routine testing is allowed once every 2 years. The testing frequency can be increased to one year for patients who have rapidly progressing disease, those who are receiving or discontinuing medical therapy to restore bone mass, or have additional risk factors. Dictated by: Benton Vargas M.D. on 02/07/2024 at 15:41 Approved by: Benton Vargas M.D. on 02/07/2024 at 15:43
== END ==
LOC: RAD 13:58
PROVIDERS: PCP Internal Medicine; Referring Provider Internal Medicine; Visit Provider Internal Medicine
DX: Z78.0 Asymptomatic menopausal state (principal); M85.852 Other specified disorders of bone density and structure, left thigh
CPT/HCPCS: 77080

== ENCOUNTER → 2024-03-19 11:56 | Outpatient (CLI) | payer MEDICARE, OTHER, SELFPAY ==
[2021-10-15 20:06] VITALS: BMI 34.3
--- NOTE | 2024-03-19 11:57 | DI.MG.S_ITS ---
UNILATERAL RIGHT DIGITAL DIAGNOSTIC MAMMOGRAM 3D/2D WITH ADDITIONAL VIEWS: 03/19/2024 CLINICAL: Additional evaluation requested from prior study. Comparison is made to exam dated: 02/06/2024 mammogram - [facility]. The right breast is almost entirely fatty (category a/<25% glandular tissue). There is a 4 mm oval equal density asymmetry in the right breast anterior depth 9:00 position. This is seen in additional views. No other significant masses or calcifications are seen in the breast. IMPRESSION: INCOMPLETE: NEEDS ADDITIONAL IMAGING EVALUATION The 4 mm oval equal density asymmetry in the right breast remains indeterminate. An ultrasound is recommended. This was performed immediately following this exam. Based on the Tyrer Cuzick model (a risk assessment model) the patient's lifetime risk is 5.6% and her 10 year risk is 3.8%. According to the ACR, ACS, and NCCN guidelines, an annual breast MRI exam along with mammogram is recommended if the patient's lifetime risk is 20% or greater. This exam was interpreted at Station ID: [id number]. NOTE: For mammograms, a report in lay terms will be sent to the patient. Approximately 15% of breast malignancies will not be visualized mammographically. In the management of a palpable breast mass, a negative mammogram must not discourage biopsy of a clinically suspicious lesion. Electronically Signed By: Naya river/:03/19/2024 12:49:19 ACR BI-RADS Category 0: Incomplete [id number]
--- NOTE | 2024-03-19 11:57 | DI.US.S_ITS ---
LIMITED ULTRASOUND OF RIGHT BREAST: 03/19/2024 CLINICAL: Patient returns today to evaluate an asymmetry in the right breast. Comparison is made to exams dated: 03/19/2024 mammogram and 02/06/2024 mammogram - [facility]. Real-time ultrasound of the right breast 9 o'clock region was performed. Santiago scale images of the real-time examination were reviewed. There is a 0.4 cm x 0.5 cm x 0.2 cm irregular cyst in the right breast at 9 o'clock anterior depth 1 cm from the nipple. This irregular cyst is hypoechoic, nearly anechoic, with through transmission. This correlates with mammography findings. Color flow imaging demonstrates that there is no vascularity present. IMPRESSION: PROBABLY BENIGN The 0.4 cm x 0.5 cm x 0.2 cm irregular cyst in the right breast could be a complicated cyst or an intramammary lymph node, but it too small to accurately characterize. Nonetheless, it is probably benign. A follow-up right mammogram and an ultrasound in 6 months is recommended to demonstrate stability. Findings and recommendations were conveyed to the patient at time of exam. This exam was interpreted at Station ID: [id number]. Electronically Signed By: Naya river/:03/19/2024 13:22:28 letter sent: Followup Recommended Ultrasound BI-RADS: 3 Probably benign
== END ==
PROVIDERS: PCP Internal Medicine; Referring Provider Internal Medicine; Visit Provider Internal Medicine
DX: R92.8 Other abnormal and inconclusive findings on diagnostic imaging of breast (principal); R92.311 Mammographic fatty tissue density, right breast; N60.01 Solitary cyst of right breast
CPT/HCPCS: 76642; 77065; G0279

== ENCOUNTER → 2024-11-02 11:12 | Outpatient (CLI) | payer MEDICARE, OTHER, SELFPAY ==
[2021-10-15 20:06] VITALS: BMI 34.3
--- NOTE | 2024-11-02 11:14 | DI.CT.S_ITS ---
PROCEDURE: CT LUNG LOW DOSE SCREENING INDICATIONS: SCREENING FOR LUNG CANCER TECHNIQUE: Noncontrast 2.0-2.5 mm thick sections acquired from the pulmonary apices to the posterior costophrenic angles. 7 mm thick axial MIP, and 5 mm coronal and sagittal reformats were then acquired. For radiation dose reduction, the following was used: automated exposure control, adjustment of mA and/or kV according to patient size. COMPARISON: [facility], CT, CT LOW DOSE LUNG CA SCREENING, 11/30/2022, 15:52. FINDINGS: Image quality: Diagnostic. Lower Neck: No enlarged lymph nodes. Thyroid: No thyroid nodules which require sonographic follow up, per consensus guidelines. Axillae: No enlarged lymph nodes. Chest Wall: Unremarkable. Bones: Osteopenia with significant increased thoracic kyphosis. Lungs and Pleura: No pneumothorax or pleural effusions. Stable pulmonary nodule, right lower lobe, previous image 158/2 and current image 148/3. The nodule measured 6.7 mm on the prior study and measures 6.8 mm on the current study. Stable 6 mm fissural nodule, left apex, previous image 42 and current image 41. Stable 3 mm pulmonary nodule, left apex, current image 41 and previous image 41. Stable 3 mm pulmonary nodule, subpleural location, right upper lobe, current image 66 and previous image 58. Mild centrilobular emphysema. No new or increasing pulmonary nodules. Heart: Heart size is normal. No pericardial effusion. Thoracic Vessels: Aorta is normal in caliber. Main pulmonary artery is 4.4 cm and right main pulmonary arteries 3.2 cm suggesting probable pulmonary arterial hypertension. Mediastinum and Shanna: No enlarged lymph nodes. Esophagus: No wall thickening. Large hiatal hernia containing stomach. Left posterior eventration of the left hemidiaphragm. Upper Abdomen: Visualized upper abdomen solid organs and bowel loops appear normal. IMPRESSION: A 6 mm pulmonary nodule as well as other pulmonary nodules have all been stable times 23 months. These nodules are behaving like benign pulmonary nodules. There is mild centrilobular emphysema. These nodules have low likelihood of becoming clinically significant malignant lesions based on lack of interval growth. LUNG-RADS t 2: continued annual screening, if eligible. Clinically Significant Non-pulmonary Findings: Osteopenia with increased thoracic kyphosis, large hiatal hernia, probable pulmonary arterial hypertension. Dictated by: Alphonse Robbins M.D. on 11/02/2024 at 17:17 Approved by: Alphonse Robbins M.D. on 11/02/2024 at 17:30
== END ==
PROVIDERS: PCP Internal Medicine; Referring Provider Internal Medicine; Visit Provider Internal Medicine
DX: F17.210 Nicotine dependence, cigarettes, uncomplicated (principal); Z12.2 Encounter for screening for malignant neoplasm of respiratory organs; R91.8 Other nonspecific abnormal finding of lung field; J43.2 Centrilobular emphysema; K44.9 Diaphragmatic hernia without obstruction or gangrene; M40.204 Unspecified kyphosis, thoracic region
CPT/HCPCS: 71271

== ENCOUNTER → 2024-11-18 08:40 | Outpatient (CLI) | payer MEDICARE, OTHER, SELFPAY ==
[2021-10-15 20:06] VITALS: BMI 34.3
--- NOTE | 2024-11-18 08:43 | DI.MG.S_ITS ---
MM diagnostic mammo BI, US breast RT limited: 11/18/2024 BI-RADS: 3 CLINICAL: 69-year old female for bilateral diagnostic mammogram and right diagnostic breast ultrasound. Tyrer-Cuzick lifetime risk of 7.1%. No personal or first-degree family history of breast cancer. Current reported family history of breast cancer: paternal aunt and third paternal aunt. PRIOR EXAMS 03/19/2024, 02/06/2024. MAMMOGRAPHY TECHNIQUE: 2D and 3D (tomosynthesis) digital mammographic views obtained, with additional images as needed for full coverage. Current study was also evaluated with a Computer Aided Detection (CAD) system. ULTRASOUND TECHNIQUE TARGETED Right Breast Ultrasound: Real-time ultrasound exam was performed focused to area of clinical and/or imaging concern. DENSITY B. There are scattered areas of fibroglandular density. MAMMOGRAPHY FINDINGS Right: MLO only, Central, Middle depth, measuring 0.4 cm: There is an asymmetry seen only on one view. This finding appears less conspicuous on the present examination, which may be due to the nipple not being in profile. Left: No suspicious mass, asymmetry, microcalcification, or other abnormality seen. ULTRASOUND FINDINGS Right: Outer at 9:00, Retroareolar, 1 cm from nipple, measuring 0.1 x 0.2 x 0.8 cm: This previously measured 0.4 x 0.2 x 0.8 cm (remeasured off the cine images). This could represent an ectatic duct versus complicated cyst. Given interval decrease in size, this finding is benign. This may or may not correlate to the asymmetry seen on mammogram. IMPRESSION: Right (Asymmetry): MLO only, Central, Middle depth, measuring 0.4 cm * Probably Benign. Left * No evidence of malignancy. RECOMMENDATIONS Right: MLO only, Central, Middle depth * Six month followup with diagnostic mammography. COMMENTS: Findings and recommendations were conveyed to the patient during today's evaluation. OVERALL ASSESSMENT CATEGORY BI-RADS-3: Probably Benign. ELECTRONICALLY SIGNED: Pita Braxton M.D. on 11/18/2024 at 10:27:37 AM PT Interpreting Station ID: [id number]
--- NOTE | 2024-11-18 08:43 | DI.US.S_ITS ---
PROCEDURE: US BREAST RT LIMITED COMPARISON: [facility], BREAST RT LIMITED, 03/19/2024, 12:47. INDICATIONS: f/u abn mammo FINDINGS: IMPRESSION: Dictated by: Pita Braxton M.D. on 11/18/2024 at 10:18 Approved by: Pita Braxton M.D. on 11/18/2024 at 10:41
== END ==
PROVIDERS: PCP Internal Medicine; Referring Provider Internal Medicine; Visit Provider Internal Medicine
DX: R92.8 Other abnormal and inconclusive findings on diagnostic imaging of breast (principal); N64.89 Other specified disorders of breast; Z80.3 Family history of malignant neoplasm of breast
CPT/HCPCS: 76642; 77066; G0279